=== PATIENT | male | born 1995 | race Caucasian/White ===

== ENCOUNTER 2019-02-07 12:33 | Inpatient (IN) | payer OTHER, SELFPAY ==
[2019-02-07] VITALS (8 sets, daily range): BP systolic 122–139; BP diastolic 75–90; PULSE 81–98; RESP 14–18; TEMP 36.3–36.9; O2SAT 99; BMI 24.8; BMI 24.9; BMI 25.0
--- NOTE | 2019-02-07 12:46 | EKG12_ITS ---
Test Reason : Blood Pressure : / mmHG Vent. Rate : 081 BPM Atrial Rate : 081 BPM P-R Int : 142 ms QRS Dur : 098 ms QT Int : 426 ms P-R-T Axes : 053 081 078 degrees QTc Int : 494 ms Normal sinus rhythm Prolonged QT Abnormal ECG No previous ECGs available Confirmed by ANAY ALEXANDER, JAYLAN ([id number]), web editor MARTA APODACA ([id number] on 02/12/2019 12:53:07 PM Referred By: Rocky Tavera Confirmed By:NETTA CUEVA MD
--- NOTE | 2019-02-07 12:47 | ED.VIS.CHEST ---
History of Present Illness Chief Complaint: Chest Pain Informant: Patient Onset: Days - 2 Timing: Intermittent - poor details available; see below; complaining of mild left chest discomfort w/o radiation right now Quality: Pain Location: Left Chest Current Severity: Mild Maximum Severity: Mild Worsened By: Nothing Relieved By: Nothing Associated Symptoms: - - anxiety. Negative for: Nausea, Vomiting, Diaphoresis, Dyspnea, Cough, Fever, Lightheadedness, Acid Reflux, Palpitations Narrative: Patient lives in [place], [place]. He uses heroin regularly, and accidentally overdosed on what was probably fentanyl a couple nights ago and was seen in the hospital and had a abnormal troponin that was around 2. He was transferred/flown to [facility] in [place], where he injected opiates while in the hospital and then left AGAINST MEDICAL ADVICE. His family convinced him to seek further medical care, so he is here today. He is anxious about what is going on and wants to stop using drugs. He states he thinks it is the anxiety, but he is developing some chest discomfort right now but has had none otherwise today or yesterday. He had an echocardiogram at [facility], the results at this time are unknown, he was supposed to have another one today but did not since he left. - Past Medical History (1) Opiate abuse, episodic Status: Chronic Past Medical History - Allergies and Home Meds Allergies/Adverse Reactions: Allergies No Known Allergies Allergy (Verified 02/07/19 12:38) Primary Care Physician: Roberto Alamo MD [Primary Care Provider] - Lives: Spouse/ Significant Other Smoking Status: Current every day smoker Drugs: Heroin Review of Systems General: Denies: Chills, Fever, Sweats Eyes: Denies: Visual changes - bilaterally, Diplopia ENT: Denies: Rhinorrhea, Sore throat Cardiovascular: Reports: Chest pain. Denies: Palpitations Respiratory: Denies: Dyspnea, Cough, Dyspnea on exertion Gastrointestinal: Denies: Abdominal pain, Nausea, Vomiting, Diarrhea, Melena, Hematochezia Genitourinary: Denies: Dysuria, Hematuria, Frequency Musculoskeletal: Denies: Back pain, Extremity Pain Skin: Denies: Rash, Wounds Neurological: Denies: Headache, Weakness, Numbness Psych: Reports: Anxiety Physical Exam Vital Signs/Narrative: Vital Signs Temp Pulse Resp BP Pulse Ox 02/07/19 12:34 98.5 F 88 14 139/90 H 99 Inital Vital Signs reviewed: Yes General: Well nourished, Well developed, No Acute Distress Head: Normocephalic, Atraumatic Eyes: Perrl, EOMI ENT: Moist mucous membranes, No rhinorrhea Neck: Supple, Nontender, No JVD Cardiovascular: Regular rate, Regular rhythm, No murmurs, Normal S1, Normal S2. Negative for: Tachycardia Respiratory: No distress, CTA bilaterally, Chest nontender Abdomen: Soft, Nontender, Nondistended, Normal bowel sounds Back: Nontender, Normal Inspection Extremities: Nontender, No edema. Negative for: Calf Tenderness Skin: Normal color, No rash, No Trauma Neurological: Alert, Oriented x3, Cranial nerves II-XII grossly intact, Normal Strength, Normal Sensation Psychological: Normal Mood, - - anxious Diagnostic/Tx/Re-eval Impressions Chest X-Ray 02/07/19 12:48 IMPRESSION: Normal x-ray examination of the chest. Electronically Signed: Harsha Dane, at 13:11 EST , Service support , 02/07/19 12:48 Chest 1 View (Portable) [RAD] Stat Laboratory Results 02/07/19 02/07/19 13:03 13:03 WBC 7.0 RBC 4.49 L Hgb 12.5 L Hct 39.8 L MCV 88.6 MCH 27.8 MCHC 31.4 L RDW Std Deviation 41.7 RDW Coeff of Sherrill 12.9 Plt Count 200 MPV 9.2 Immature Gran % (Auto) 0.300 Neut % (Auto) 45.7 L Lymph % (Auto) 38.1 [place] % (Auto) 11.6 H Eos % (Auto) 3.9 Baso % (Auto) 0.4 Absolute Neuts (auto) 3.2 Absolute Lymphs (auto) 2.67 Nucleated RBC % 0 Sodium 140 Potassium 3.9 Chloride 104 Carbon Dioxide 31.0 Anion Gap 5 BUN 17 Creatinine 0.88 Estim Creat Clear Calc 137.86 Est GFR (MDRD) Af Amer 136 Est GFR (MDRD) Non-Af 113 BUN/Creatinine Ratio 19.3 Glucose 82 Calcium 8.3 L Troponin I 0.274 H - Rhythm Strip Rhythm Strip: Sinus Rhythm Rate: 90 Ectopy: None - EKG Initial EKG Interpretation: Sinus Rhythm, No Acute Injury Pattern, S-T Elevation - J-pt elevation V2-3, more of an early repol appearance Prior: No Prior Treatment: Aspirin, - - clopidogrel - Medical Decision Making Patient is chest pain-free on reevaluation. His troponin is elevated at 0.27, we are still awaiting records from [facility]. I discussed with Dr. Sykes with cardiology, he recommends admitting the patient, loading him with Plavix 300 mg, giving him aspirin, in preparation for a heart cath tomorrow as well as an echocardiogram. I discussed with the patient and family at length, he is amenable to being admitted. As I discussed with him, if he does go into withdrawal we have addiction medicine that could be consulted for him, and he will need to be referred to rehab as an outpatient to help him get off of heroin, which he is reluctantly agreeing to at this time. ED Disposition - Plan for ED Patient: Disposition: Acute Care Hospital [facility] Diagnosis: Elevated troponin, Opiate abuse, episodic, Chest pain Referrals: Roberto Alamo MD [Primary Care Provider] -
--- NOTE | 2019-02-07 12:48 | RAD_ITS ---
STUDY: X-RAY CHEST REASON FOR EXAM: Male, 23 years old. Chest pain. TECHNIQUE: Single AP portable view of the chest. COMPARISON: None. FINDINGS: The lungs are clear and expanded. There is no demonstrated pleural abnormality. Normal size heart. Normal mediastinum and jason. Normal visualized pulmonary arteries. Normal visualized aortic arch and descending thoracic aorta. Normal visualized thoracic spine. Normal visualized ribs, clavicles, and shoulders. There is no demonstrated abnormality of the visualized soft tissue structures of the upper abdomen. RAD/Chest 1 View (Portable) IMPRESSION: Normal x-ray examination of the chest. Electronically Signed: Harsha Vela, at 13:11 EST , Service support ,
[2019-02-07 13:25] LABS: Absolute Lymphocyte Count 2.67 X10^3/uL (0.83-4.51); Absolute Neutrophil Count 3.2 X10^3/uL (2.0-7.7); Basophil# 0.03 X10^3/uL; Basophil% 0.4 % (0-1); Eosinophil# 0.27 X10^3/uL; Eosinophils% 3.9 % (0-5); Hematocrit 39.8 % (40-54); Hemoglobin 12.5 g/dL (13.0-16.5); Lymphocyte # 2.67 X10^3/ul (4.0); Lymphocyte % 38.1 % (19-41); Mean Corp Hgb Conc 31.4 g/dL (32-36); Mean Corpuscular Hgb 27.8 pg (27.0-32.0); Mean Corpuscular Volume 88.6 fL (80-94); Mean Platelet Vol. 9.2 fl (6.2-12.0); Monocyte# 0.81 X10^3/uL; Monocyte% 11.6 % (0-10); NRBC Flagged by Analyzer 0 % (0-5); Neutrophil # 3.21 X10^3/uL (2.7-7.7); Neutrophil % 45.7 % (47-70); Platelet Count 200 K/mm3 (150-450); RBC Distribution Width CV 12.9 % (11.6-14.6); RBC Distribution Width SD 41.7 fl (35.1-43.9); Red Blood Count 4.49 M/mm3 (4.6-6.2)
[2019-02-07 13:29] LABS: Anion Gap 5 (5-15); BUN 17 mg/dL (7-18); BUN/Creat Ratio 19.3 RATIO (10-20); Calcium,Total 8.3 mg/dL (8.5-10.1); Chloride 104 mmol/L (98-107); Creatinine, Serum 0.88 mg/dL (0.70-1.30); EST Glomerular Filtration Rate 113 mL/min (>60); Est Glom Filt Rate - Afr Amer 136 mL/min (>60); Estimated Creatinine Clearance 137.86 ml/min; Glucose 82 mg/dL (74-106); Potassium 3.9 mmol/L (3.5-5.1); Sodium Level 140 mmol/L (136-145)
[2019-02-07] MEDS: Aspirin 81 MG TAB.CHEW 324 MG PO (15:26)
[2019-02-07] MEDS: Clopidogrel Bisulfate 300 MG Tablet PO (15:26)
--- NOTE | 2019-02-07 15:48 | CON.PCM_ITS ---
Problem List (1) Opiate abuse, episodic Status: Chronic (2) Elevated troponin Status: Acute (3) Chest pain Status: Acute Reason for Consult Date of Consultation: 02/07/19 Reason for Consultation: Chest pain, abnormal troponin, tobacco abuse History of Present Illness: The patient is a 23 year old M with no previous cardiac history, nondiabetic, current smoker of 1/2 to 1 pack of cigarettes per day for the past several years, occasional alcohol use, with almost daily use of IV fentanyl, methamphetamines, and heroin IV. Patient had overdose about 2 nights ago, and sought medical attention in an outside facility in [place], and apparently signed out AGAINST MEDICAL ADVICE. At that time a troponin was obtained and was found to be 2.0. Apparently was flown by helicopter to [facility] in [place] and subsequently admitted to the hospital. Apparently while in the hospital the patient used illicit drugs, and then eventually signed out AMA. The patient returned to his hometown area with his family and was then brought to the emergency room for further evaluation and for admission for detoxification drug use. In addition the patient complained of chest pain and palpitations as well as a fast heart rate while he was using methamphetamines. He has never had an echocardiogram, catheterization, or stress test. He is currently chest pain- free. His troponin in our hospital was 0.27. EKG today demonstrates normal sinus rhythm with no acute changes. He was given baby aspirin and Plavix with echocardiogram pending. [] Past Medical History Allergies/Adverse Reactions: Allergies No Known Allergies Allergy (Verified 02/07/19 12:38) Home Medications: Ambulatory Orders Medication Instructions Recorded NK 02/07/19 Past Medical History (Chronic Problems): Chronic Problems Opiate abuse, episodic (Chronic) Lives: Spouse/ Significant Other Smoking Status: Current every day smoker Tobacco Use: Cigarettes Drugs: Heroin Review of Systems - Review of Systems General: Denies: Fever, Night Sweats, Fatigue Cardiovascular: Reports: Chest Discomfort, Chest Discomfort at Rest, Palpitations. Denies: Shortness of Breath, Orthopnea, PND, Peripheral Edema, Lightheadedness, Dizziness, Near Syncope, Syncope Respiratory: Denies: Cough, Sputum Production, Hemoptysis Gastrointestinal: Denies: Hematemesis, Hematochezia, Melena Genitourinary: Denies: Dysuria, Hematuria Skin: Denies: Rash Subjectve: Patient laying in bed, no acute distress. Objective: Vital Signs Temp Pulse Resp BP Pulse Ox 98.5 F 89 17 127/81 H 99 02/07/19 12:34 02/07/19 14:34 02/07/19 14:34 02/07/19 14:34 02/07/19 14:34 Oxygen Delivery Method Room Air Weight: 178 lb 5.663 oz Body Mass Index (BMI) 24.8 General: Awake, Alert, Oriented x 3 HEENT: PERRL, EOMI, Sclera Non Icteric Neck: Supple, Good ROM, No Lymph Node Enlargement Lungs: Clear to auscultation Cardiovascular: Regular Rhythm, Normal S1, Normal S2, No Murmurs, No Rubs, No Gallops Vascular: No Carotid Bruits, Normal Femoral Pulses, Normal Radial Pulses, Normal Dorsalis Pedal Pulse, Normal Posterior Tibial Pulses Abdomen: Bowel Sounds Present, Soft, Non Tender, No HSM, No Organomegaly Extremities: No Cyanosis, No Clubbing, No edema Neurological: No Focal Motor or Sensory Deficit 02/07/19 13:03: WBC 7.0, RBC 4.49 L, Hgb 12.5 L, Hct 39.8 L, MCV 88.6, MCH 27.8, MCHC 31.4 L, Plt Count 200, MPV 9.2, Immature Gran % (Auto) 0.300, Neut % (Auto) 45.7 L, Lymph % (Auto) 38.1, Kay % (Auto) 11.6 H, Eos % (Auto) 3.9, Baso % (Auto) 0.4, Absolute Neuts (auto) 3.2, Nucleated RBC % 0 02/07/19 13:03: Sodium 140, Potassium 3.9, Chloride 104, Carbon Dioxide 31.0, Anion Gap 5, BUN 17, Creatinine 0.88, Est GFR (MDRD) Af Amer 136, Est GFR (MDRD) Non-Af 113, BUN/Creatinine Ratio 19.3, Glucose 82, Calcium 8.3 L, Troponin I 0.274 H Rhythm: EKG: ECHO: Pending Stress Test: Cardiac Cath: Pending PCI: CT Surgery: Holter monitor: EPS: PPM: CXR: Negative. Chest CT Scan: Assessment/Plan 1. Abnormal troponin: The patient has an abnormal troponin at outside facility of 2.0, which is decreased to 0.27. I recommended the patient be given baby aspirin x4, followed by 3 mg of p.o. Plavix in case he may have acute coronary syndrome which is resolving. The patient did have chest pain although it was with the use of methamphetamines, heroin, and fentanyl. I recommended the patient undergo a 2D echo with Doppler to document his LV function, pulmonary pressures and valvular status. In addition given his chest pain and abnormal troponins, I recommended that we proceed with a left heart catheterization to ensure he does not have any significant coronary occlusive disease that may explain his symptoms and abnormal troponin. The risk/benefits of the procedure were thoroughly explained to the patient, his brother, and his father, including specific attention to lack of onsite surgical backup. Patient is agreed to proceed. 2. Hypertension: I recommend starting the patient on metoprolol 25 mg p.o. twice daily in an attempt to control his blood pressure and his heart rate to avoid further troponin release until his catheterization has been completed. 3. Recommend obtaining a vascular profile. 4. Drug abuse: Patient's main issues are multiple drug use, including methamphetamine, fentanyl IV, and heroin. I believe the patient should be admitted for inpatient detoxification and drug rehab. Patient may require sedative medications during withdrawal symptoms. I would not recommend discharging home at this time. 5. Tobacco abuse: I had a long and thorough discussion with the patient regarding tobacco use as well as other drug use, and strongly encouraged him to discontinue all tobacco products. 6. Thank you very much for the opportunity to participate in the cardiac care of your patient. Rotation time took place between 330 and 4 PM. Code Visit Inpatient E&M: 35540 Init Hosp L2
--- NOTE | 2019-02-07 15:58 | ECHOD_ITS ---
Reason For Study: CAD, elevated troponin Procedure This was a 2D Doppler, Color Flow transthoracic echocardiogram. Exam performed portable in patient room. Left Ventricle Normal size and thickness. Apical false tendon noted. The estimated ejection fraction is 55 %. Normal diastology for age. No regional wall motion abnormalities noted. There is borderline global hypokinesis of the left ventricle. Right Ventricle Normal size and thickness. Normal systolic function. Atria Normal left atrium. Normal right atrium. Normal atrial septum. Mitral Valve The mitral valve is structurally normal. No prolapse or stenosis seen. Trivial posteriorly directed mitral valve insufficiency. Tricuspid Valve Normal tricuspid valve. Mild (1+) tricuspid valve insufficiency. Right ventricular systolic pressure estimated to be 37 mmHg. Mild pulmonary hypertension. Aortic Valve Trisinus/trileaflet aortic valve. Normal aortic valve. Pulmonic Valve Normal pulmonic valve. Trivial pulmonic valve insufficiency. Great Vessels Normal aortic root. Normal arch. The inferior vena cava is dilated. No collapse of the inferior vena cava. Pericardium/Pleural No pericardial effusion. MMode/2D Measurements & Calculations LVIDd: 4.7 cm IVSd: 1.4 cm Ao root diam: 2.9 cm LVIDs: 3.0 cm LVPWd: 1.3 cm RVDd: 3.5 cm FS: 35.9 % LAV(MOD-bp): 22.7 ml LA A4 area: 13.0 cm2 LA dimension(2D): 2.2 cm LAV(MOD-bp) Indexed: 11.3 ml/m2 LAV(MOD-sp2): 18.8 ml LAV(MOD-sp4): 26.8 ml RA A4 area: 12.5 cm2 Doppler Measurements & Calculations MV E max andrea: 64.8 cm/sec Lat Peak E' Andrea: 13.6 cm/sec Med Peak E' Andrea: 9.4 cm/sec MV A max andrea: 30.2 cm/sec E/E' lat: 4.8 E/E' med: 6.9 MV E/A: 2.1 Ao V2 max: 84.0 cm/sec LV V1 max: 78.9 cm/sec PA V2 max: 54.9 cm/sec Ao max P.8 mmHg LV V1 max P.5 mmHg TR max andrea: 282.7 cm/sec TR max P.3 mmHg Interpretation Summary The estimated ejection fraction is 55 %. Normal diastology for age. There is borderline global hypokinesis of the left ventricle. Trivial posteriorly directed mitral valve insufficiency. Mild (1+) tricuspid valve insufficiency. Right ventricular systolic pressure estimated to be 37 mmHg. Mild pulmonary hypertension. There is no comparison study available. Ordering Physician: Zuhair Sykes Referring Physician: Rocky Tavera Performed By: Janny, Raine, RDCS
--- NOTE | 2019-02-07 16:33 | HP.PCM_ITS ---
Problem List (1) Polysubstance (including opioids) dependence, daily use Status: Chronic (2) Nicotine dependence Status: Chronic (3) Chest pain Status: Acute (4) Elevated troponin Status: Acute (5) Opiate abuse, episodic Status: Chronic History of Present Illness Date of Admission: 02/07/19 Chief Complaint: Polysubstance use and chest pain The patient is a 23 year old M with history of polysubstance use including opioids fentanyl and heroin IV came to ER with chest pain as per the request of family. Prior to that, patient went to [place] ER for IV heroin and fentanyl use and where he was found to have troponin although he denies chest pain yesterday. From there he was transferred to [facility] for positive troponin. There he was found unconscious in the bathroom after using IV fentanyl and was reversed by Narcan. As per the patient he was down for few minutes. Later on patient signed AMA from there. He came to ER with chest pain today, midsternal localized about 2-3 times each lasting few seconds to a few minutes. There is no associated shortness of breath, palpitation, diaphoresis or near syncope. Patient is also a smoker, smokes cigarette since early 13 a pack per day. Patient was also using crack cocaine few years ago currently IV heroin and fentanyl and methamphetamine for 2 to 3 years. In ED, EKG was found normal sinus rhythm at 90 bpm with J-point elevation in V2 and V3. Chest x-ray reported normal. Troponin 0 0.274. Recreational Resort Manager was consulted and patient seen by Dr. Sykes in ER. Past Medical History Past Medical History (Chronic Problems): Chronic Problems Opiate abuse, episodic (Chronic) Polysubstance (including opioids) dependence, daily use (Chronic) Nicotine dependence (Chronic) Allergies No Known Allergies Allergy (Verified 02/07/19 12:38) Home Medications: Ambulatory Orders Medication Instructions Recorded NK 02/07/19 Lives: Spouse/ Significant Other Smoking Status: Current every day smoker Tobacco Use: Cigarettes Drugs: Heroin - *Family History Paternal History Items: No pertinent history - No heart disease in first-degree family relative Review of Systems Constitutional: Denies: Chills, Fever, Weight Change HEENT: Denies: Head Aches, Sinus Congestion, Sinus Drainage Cardiovascular: Reports: Chest Pain. Denies: Palpitations Respiratory: Denies: Cough, Shortness of breath at rest, Sputum production Gastrointestinal: Denies: Abdominal Pain, Nausea, Vomiting Genitourinary: Denies: Dysuria Musculoskeletal: Denies: Joint Pain, Joint Tenderness Skin: Denies: Rash, Wounds Neurological: Denies: Numbness, Tingling, Focal weakness Psychiatric: Reports: Anxiety. Denies: Depression, Homicidal Ideations, Suicidal Ideations Hematologic/ Lymphatic: Denies: Easy Bruising, Easy Bleeding VTE Information - Inpt Only VTE Present on Admission: No VTE Mechan Device Prophylaxis: None VTE Pharm Prophylaxis ordered?: Yes Patient Problems: Active and Suspected Problems Elevated troponin (Acute) Chest pain (Acute) - Physical Exam Vitals/I&O's: Vital Signs Temp Pulse Resp BP Pulse Ox 98.3 F 81 16 127/81 H 99 02/07/19 16:20 02/07/19 16:28 02/07/19 16:20 02/07/19 16:20 02/07/19 16:20 Oxygen Delivery Method Room Air Weight: 174 lb 9.698 oz Body Mass Index (BMI) 25.0 General: Alert, Oriented x3, Cooperative HEENT: Atraumatic, PERRLA, EOMI, Normocephalic Oral: Dry Mucosa Neck: Supple, No JVD, Negative Carotid Bruits Lungs: Clear to auscultation, Normal air movement, No rhonchi, No wheeze, No rales Cardiovascular: Regular rate, Regular Rhythm, Normal S1, Normal S2, No murmurs Abdomen: Bowel Sounds Present, Soft, Non Tender, Non-Distended Extremities: No edema, Capillary Refill Less than 3 Seconds Skin: No rashes, No breakdown, - - Needle bolivar over bilateral antecubital fossa. Musculoskeletal: No Tenderness to Palpation of Joints or Extremities Neurological: Cranial nerves II-XII grossly intact Psych/Mental Status: Normal Affect, Appropriate Laboratory Results 02/07/19 13:03: WBC 7.0, RBC 4.49 L, Hgb 12.5 L, Hct 39.8 L, MCV 88.6, MCH 27.8, MCHC 31.4 L, RDW Std Deviation 41.7, RDW Coeff of Sherrill 12.9, Plt Count 200, MPV 9.2, Immature Gran % (Auto) 0.300, Neut % (Auto) 45.7 L, Lymph % (Auto) 38.1, [place] % (Auto) 11.6 H, Eos % (Auto) 3.9, Baso % (Auto) 0.4, Absolute Neuts (auto) 3.2, Absolute Lymphs (auto) 2.67, Nucleated RBC % 0 02/07/19 13:03: Sodium 140, Potassium 3.9, Chloride 104, Carbon Dioxide 31.0, Anion Gap 5, BUN 17, Creatinine 0.88, Estim Creat Clear Calc 137.86, Est GFR (MDRD) Af Amer 136, Est GFR (MDRD) Non-Af 113, BUN/Creatinine Ratio 19.3, Glucose 82, Calcium 8.3 L, Troponin I 0.274 H 02/07/19 13:03: Triglycerides Pending, Cholesterol Pending, LDL Cholesterol Pending, VLDL Cholesterol Pending, HDL Cholesterol Pending Current Medications Diphenhydramine HCl (Benadryl) 50 mg PO X1 ONE Stop: 02/08/19 07:01 Sodium Chloride () 1,000 mls @ 15 mls/hr IV .Q48H ALBERTO Metoprolol Tartrate (Lopressor (Beta Jay)) 25 mg PO BID ALBERTO Sodium Chloride () 10 - 40 ml IV UD PRN PRN Reason: SALINE FLUSH Assessment/Plan All Active Problems Elevated troponin (Acute) Chest pain (Acute) The patient is a 23 year old M with history of polysubstance use including opioids fentanyl and heroin IV came to ER with chest pain as per the request of family. He came to ER with chest pain today, midsternal localized about 2-3 times each lasting few seconds to a few minutes. There is no associated shortness of breath, palpitation, diaphoresis or near syncope. Patient is also a smoker, smokes cigarette since early 13 a pack per day. Patient was also using crack cocaine few years ago currently IV heroin and fentanyl and methamphetamine for 2 to 3 years. In ED, EKG was found normal sinus rhythm at 90 bpm with J-point elevation in V2 and V3. Chest x-ray reported normal. Troponin 0 0.274. Recreational Resort Manager was consulted and patient seen by Dr. Sykes in ER. 1. Atypical chest pain from sympathomimetics, methamphetamine with possibility of acute coronary syndrome/NSTEMI/Prinzmetal angina: Patient is being admitted in PCU. Serial troponin ordered. Possible cardiac catheter tomorrow a.m. 2. Polysubstance use including IV heroin, fentanyl and methamphetamine: Patient was counseled to stop that. Patient started on medical stabilization order set for opioids. 3. Chronic smoking cigarettes, nicotine dependence: On nicotine patch. DVT prophylaxis: Low risk. Early ambulation encouraged. Clinical Impression(s) from Imaging Studies Chest X-Ray 02/07/19 12:48 IMPRESSION: Normal x-ray examination of the chest. Electronically Signed: Harsha Vela, at 13:11 EST , Service support , Code Visit Inpatient E&M: 44402 Init Hosp L3
--- NOTE | 2019-02-07 17:10 | EKG12_ITS ---
Test Reason : ABN LABS Blood Pressure : / mmHG Vent. Rate : 090 BPM Atrial Rate : 090 BPM P-R Int : 140 ms QRS Dur : 100 ms QT Int : 380 ms P-R-T Axes : 054 082 078 degrees QTc Int : 464 ms Normal sinus rhythm Normal ECG Confirmed by ANAY ALEXANDER, JAYLAN ([id number]), newspaper photo editor DIANA SULTANA ([id number]) on 02/12/2019 11:44:23 AM Referred By: Rocky Tavera Confirmed By:NETTA CUEVA MD
[2019-02-07 17:37] LABS: International Normalized Ratio 1.1; Prothrombin Time (Protime)PT. 14.2 SECONDS (11.7-14.9)
[2019-02-07 18:15] LABS: Lipase 97 U/L (73-393)
[2019-02-07] MEDS: 0.9% Normal Saline 1,000 ML 100 ML IV (18:20)
[2019-02-07] MEDS: chlordiazePOXIDE 25 MG Capsule PO ×2 (18:30→21:43)
[2019-02-07] MEDS: Buprenorphine HCl 2 MG TAB.SUBL SL (18:30)
[2019-02-07 18:43] LABS: Bacteria 0 SEEN /hpf (None Seen); Mucous, Urine 0 SEEN /hpf (<or=2+); Red Blood Cells-Urine 0 SEEN /hpf (0-5); Squamous Epithelial Cells - UA 0 SEEN /hpf (0-5); White Blood Cells 0 SEEN /hpf (0-5)
[2019-02-07 18:52] LABS: Color, Urine Yellow (Yellow); Glucose, Dipstick Normal (Normal); Ketone-Dipstick Negative (Negative); Leukocyte Esterase-Dipstick Negative /ul (Negative); Nitrite-Dipstick Negative (Negative); Occult Blood-Urine Negative /ul (Negative); Protein-Dipstick Negative (Negative); Urine Bilirubin Dipstick Negative (Negative); Urine Clarity Sl. Cloudy (Clear); Urine Urobilinogen Normal (Normal)
[2019-02-07 19:06] LABS: Cholesterol 65 mg/dL (200); High Density Lipoprotein 35 mg/dL; Triglycerides 81 mg/dL; Very Low Density Lipoprotein 16 mg/dL (5-40)
[2019-02-07 19:20] LABS: Amphetamine Urine VISTA POSITIVE (<1000 ng/mL); Barbiturate Urine VISTA NEGATIVE (< 200 ng/mL); Benzodiazepine Urine VISTA POSITIVE (< 200 ng/mL); Cocaine Urine VISTA NEGATIVE (< 300 ng/mL); Ecstacy Urine VISTA NEGATIVE (< 500 ng/mL); Methadone Urine VISTA NEGATIVE (< 300 ng/mL); PCP Urine VISTA NEGATIVE (< 25 ng/mL); THC Urine VISTA NEGATIVE (< 50 ng/mL); Vista UDS pH Range 6
[2019-02-07] MEDS: Atorvastatin Calcium 40 MG Tablet PO (21:42)
[2019-02-07] MEDS: traZODone 50 MG Tablet PO (21:43)
[2019-02-07] MEDS: Metoprolol Tartrate 25 MG Tablet PO (21:43)
[2019-02-07] MEDS: Ondansetron 4 MG/2 ML Vial IV (23:34)
[2019-02-08] VITALS (21 sets, daily range): BP systolic 86–112; BP diastolic 56–67; PULSE 70–87; RESP 16–18; TEMP 36.3–36.8; O2SAT 92–98
[2019-02-08] MEDS: chlordiazePOXIDE 25 MG Capsule PO ×4 (03:16→14:06)
[2019-02-08] MEDS: Buprenorphine HCl 2 MG TAB.SUBL SL ×3 (03:19→17:41)
[2019-02-08] MEDS: 0.9% Normal Saline 1,000 ML 100 ML IV ×2 (03:20→14:13)
[2019-02-08] MEDS: Clopidogrel Bisulfate 75 MG Tablet PO (05:25)
[2019-02-08] MEDS: Aspirin E.C. 81 MG Tablet PO (05:25)
[2019-02-08] MEDS: Metoprolol Tartrate 25 MG Tablet PO (05:26)
--- NOTE | 2019-02-08 05:55 | EKG12_ITS ---
Test Reason : AM EKG Blood Pressure : / mmHG Vent. Rate : 074 BPM Atrial Rate : 074 BPM P-R Int : 156 ms QRS Dur : 096 ms QT Int : 418 ms P-R-T Axes : 052 088 072 degrees QTc Int : 463 ms Normal sinus rhythm Normal ECG When compared with ECG of 07-FEB-2019 12:48, MANUAL COMPARISON REQUIRED, DATA IS UNCONFIRMED Confirmed by ANAY ALEXANDER, JAYLAN ([id number]), food expeditor MARTA APODACA ([id number]) on 02/12/2019 12:50:44 PM Referred By: Rocky Tavera Confirmed By:NETTA CUEVA MD
[2019-02-08 06:05] LABS: Absolute Lymphocyte Count 2.58 X10^3/uL (0.83-4.51); Absolute Neutrophil Count 2.2 X10^3/uL (2.0-7.7); Basophil# 0.02 X10^3/uL; Basophil% 0.3 % (0-1); Eosinophil# 0.32 X10^3/uL; Eosinophils% 5.5 % (0-5); Hematocrit 38.4 % (40-54); Hemoglobin 11.9 g/dL (13.0-16.5); Lymphocyte # 2.58 X10^3/ul (4.0); Lymphocyte % 44.7 % (19-41); Mean Corpuscular Hgb 27.4 pg (27.0-32.0); Mean Corpuscular Volume 88.5 fL (80-94); Mean Platelet Vol. 9.6 fl (6.2-12.0); Monocyte# 0.61 X10^3/uL; Monocyte% 10.6 % (0-10); NRBC Flagged by Analyzer 0 % (0-5); Neutrophil # 2.23 X10^3/uL (2.7-7.7); Neutrophil % 38.7 % (47-70); Platelet Count 180 K/mm3 (150-450); RBC Distribution Width CV 12.8 % (11.6-14.6); RBC Distribution Width SD 41.8 fl (35.1-43.9); Red Blood Count 4.34 M/mm3 (4.6-6.2); White Blood Count 5.8 K/mm3 (4.4-11.0)
[2019-02-08] MEDS: DiphenhydrAMINE 25 MG Capsule 50 MG PO (06:26)
[2019-02-08 06:44] LABS: ALB/GLOB Ratio 0.9 RATIO (0.9-2.4); AST(SGOT) 270 U/L (15-37); Alanine Aminotransfer ALT/SGPT 363 U/L (16-61); Albumin, Serum 2.8 g/dL (3.2-5.0); Alkaline Phosphatase 110 U/L (45-117); Anion Gap 4 (5-15); BUN 14 mg/dL (7-18); BUN/Creat Ratio 17.9 RATIO (10-20); Bilirubin, Direct 0.34 mg/dL (0.00-0.30); Chloride 108 mmol/L (98-107); Creatinine, Serum 0.78 mg/dL (0.70-1.30); EST Glomerular Filtration Rate 129 mL/min (>60); Est Glom Filt Rate - Afr Amer 156 mL/min (>60); Estimated Creatinine Clearance 150.78 ml/min; Globulin 3.2 g/dL (2.2-4.2); Glucose 97 mg/dL (74-106); Magnesium 1.9 mg/dL (1.6-2.6); Potassium 4.1 mmol/L (3.5-5.1); Sodium Level 140 mmol/L (136-145); Thyroid Stim Hormone (TSH) 2.17 uIU/mL (0.358-3.74)
--- NOTE | 2019-02-08 06:59 | NURSING ---
Report called to ruiz Spencer.
--- NOTE | 2019-02-08 08:05 | CL.D_ITS ---
Patient Name: MAGALY COLLIER Study Date: 02/08/2019 Performing: Zuhair Sykes MD Ht: 70.07 inches 178 cm : 1995 Wt: 174.17 lbs 79 kg Age: 23 Gender: male BSA: 1.97 PROCEDURE(S) PERFORMED [id number]/LV CLINICAL PROFILE AND INDICATIONS Patient presents with NSTEMI for urgent cardiac cath Indications: ACS > 24 hrs, New Onset Angina <= 2 months, Suspected CAD Heart Failure: None Stress/Imaging Stress/Image Study Performed: No Angina Classification Anginal Classification w/in 2 Weeks: CCS IV CAD Presentations: Unstable angina. Non-STEMI. Symptom onset Date/Time: 02/06/2019 Time Not Avail able Comorbidities/Risk Factors: Current/Recent Smoker (< 1year) CONCLUSIONS Normal LV size, wall motion,and systolic function Normal coronary arteries RECOMMENDATIONS Management as per referring Honey Extractor d/c plavix, start lopressor 12.5 mg po bid. Manual sheath removal. DESCRIPTION OF PROCEDURE The patient arrived to the procedure lab. The risks and benefits of the procedure as well as a full d escription of our services here and current unavailability of surgical backup were fully explained to the patient and/or their significant other prior to the catheterization. The Timeout was completed, verifying the correct patient and procedure. The patient's procedural site was prepped and draped in the usual fashion. Local anesthetic was given subcutaneously to right groin region with Lidocaine 2%. Using a modified Seldinger technique, arterial access was obtained via the right femoral artery, a 4 Fr sheath was inserted Left Coronary Artery selective angiography was performed in multiple views us ing a 4 Fr. JL5 catheter. Right Coronary Artery selective angiography was then performed in multiple views using a 4 Fr. 3DRC catheter. Left Ventriculography was performed in [place] projection using a 4 Fr . Pigtail catheter. LV to AO pullback pressures were then recorded.The arterial sheath was pulled and manual compression applied until hemostasis is achieved. CORONARY ANGIOGRAPHY DOMINANCE: Right Dominant LEFT HEART ASSESSMENT Left Ventricular Ejection Fraction: by LV Gram 55 % Normal LV wall motion Normal Left Ventricular systolic function Normal Left Ventricular systolic function LVEDP: 11 mmHg Normal Left Ventricular End Diastolic Pressure LEFT MAIN: Angiographically normal LEFT ANTERIOR DESCENDING ARTERY: Angiographically normal CIRCUMFLEX ARTERY: Angiographically normal RIGHT CORONARY ARTERY: Angiographically normal COMPLICATIONS No Complications PROCEDURE MEDICATIONS Oxygen: 2 L/min via nasal cannula SUMMARY OF HEMODYNAMIC DATA Time AIR REST ECG 07:31:33 AO 82/60 (70) SA 07:47:04 LV 100/-10, 10 07:52:19 LV 105/-13, 11 07:52:25 LVp 103/-9, 12 07:52:29 AOp 92/60 (74) 07:52:34 Signed By Zuhair Sykes MD On 02/08/2019 8:04:56 AM Zuhair Sykes MD
[2019-02-08] MEDS: Metoprolol Tartrate 25 MG Tablet 12.5 MG PO ×2 (10:07→21:14)
--- NOTE | 2019-02-08 13:48 | PN_ITS ---
<Aide Wild - Last Filed: 02/08/19 14:00> Patient Problems: Active and Suspected Problems Elevated troponin (Acute) Chest pain (Acute) Subjective: Patient seen and examined. Underwent cardiac catheterization this morning which demonstrated normal coronary arteries. Patient lethargic during assessment. Family at bedside and is working with inpatient treatment facility with goals of discharge directly to inpatient treatment facility for polysubstance abuse. - Physical Exam Vitals/I&O's: Vital Signs Temp Pulse Resp BP Pulse Ox 98.0 F 73 18 96/61 94 02/08/19 11:00 02/08/19 12:00 02/08/19 12:00 02/08/19 12:00 02/08/19 12:00 Oxygen Delivery Method Room Air Weight: 174 lb 9.698 oz Body Mass Index (BMI) 25.0 Intake and Output for Last 24 Hours 02/06/19 02/07/19 02/08/19 23:59 23:59 23:59 Intake Total 1611.67 / 1611.67 Balance 1611.67 / 1611.67 General: - - Drowsy, no apparent distress HEENT: Atraumatic, PERRLA, EOMI, Normocephalic Neck: Supple, No JVD, Negative Carotid Bruits Lungs: Clear to auscultation, Normal air movement Cardiovascular: Regular rate, Regular Rhythm, Normal S1, Normal S2, No murmurs Abdomen: Bowel Sounds Present, Soft, Non Tender, Non-Distended Extremities: No clubbing, No cyanosis, No edema, Capillary Refill Less than 3 Seconds Skin: No rashes, No breakdown Musculoskeletal: No Tenderness to Palpation of Joints or Extremities Neurological: Cranial nerves II-XII grossly intact, Neuro grossly intact Psych/Mental Status: - - Unable to assess due to lethargy Laboratory Results 02/07/19 13:03: Triglycerides 81, Cholesterol 65, LDL Cholesterol 14, VLDL Cholesterol 16, HDL Cholesterol 35 L 02/07/19 13:03: PT 14.2, INR 1.1 02/07/19 13:03: Ethyl Alcohol 6.0 02/07/19 17:40: Troponin I 0.196 H, Lipase 97 02/07/19 18:30: Urine Opiates Screen NEGATIVE, Urine Methadone Screen NEGATIVE, Ur Barbiturates Screen NEGATIVE, Ur Phencyclidine Scrn NEGATIVE, Ur Amphetamines Screen POSITIVE H, U Methamphetamin-MDMA NEGATIVE, U Benzodiazepines Scrn POSITIVE H, Urine Cocaine Screen NEGATIVE, U Cannabinoids Screen NEGATIVE, Ur Drug Screen Comment 02/07/19 18:30: Urine Color Yellow, Urine Clarity Sl. Cloudy, Urine pH 6.0, Ur Specific Bertrand 1.020, Urine Protein Negative, Urine Glucose (UA) Normal, Urine Ketones Negative, Urine Occult Blood Negative, Urine Nitrite Negative, Urine Bilirubin Negative, Urine Urobilinogen Normal, Ur Leukocyte Esterase Negative, Urine RBC 0 SEEN, Urine WBC 0 SEEN, Ur Squamous Epith Cells 0 SEEN, Urine Bacteria 0 SEEN, Urine Mucus 0 SEEN 02/07/19 20:30: Troponin I 0.173 H 02/08/19 05:10: Sodium 140, Potassium 4.1, Chloride 108 H, Carbon Dioxide 28.0, Anion Gap 4 L, BUN 14, Creatinine 0.78, Estim Creat Clear Calc 150.78, Est GFR (MDRD) Af Amer 156, Est GFR (MDRD) Non-Af 129, BUN/Creatinine Ratio 17.9, Glucose 97, Calcium 8.0 L, Magnesium 1.9, Total Bilirubin 0.70, Direct Bilirubin 0.34 H, AST 270 H, ALT 363 H, Alkaline Phosphatase 110, Total Protein 6.0 L, Albumin 2.8 L, Globulin 3.2, Albumin/Globulin Ratio 0.9, TSH 2.17 02/08/19 05:10: WBC 5.8, RBC 4.34 L, Hgb 11.9 L, Hct 38.4 L, MCV 88.5, MCH 27.4, MCHC 31.0 L, RDW Std Deviation 41.8, RDW Coeff of Sherrill 12.8, Plt Count 180, MPV 9.6, Immature Gran % (Auto) 0.200, Neut % (Auto) 38.7 L, Lymph % (Auto) 44.7 H, Gratiot % (Auto) 10.6 H, Eos % (Auto) 5.5 H, Baso % (Auto) 0.3, Absolute Neuts (auto) 2.2, Absolute Lymphs (auto) 2.58, Nucleated RBC % 0 Current Medications Acetaminophen (Tylenol) 650 mg PO Q6H PRN PRN PRN Reason: Pain Score 1-3/Temp > 100.7 F Al Hydroxide/Mg Hydroxide (Mylanta Ii) 30 ml PO Q6H PRN PRN PRN Reason: dyspesia Albuterol Sulfate (Ventolin Aerosols) 2.5 mg INHALATION Q2H PRN PRN PRN Reason: SOB/Wheezing Aspirin (Ecotrin) 81 mg PO DAILY@0800 [facility] Last Admin: 02/08/19 05:25 Dose: 81 mg Documented by: Atorvastatin Calcium (Lipitor) 40 mg PO QHS [facility] Last Admin: 02/07/19 21:42 Dose: 40 mg Documented by: Bisacodyl (Dulcolax) 10 mg RECTAL DAILY PRN PRN Reason: Constipation Buprenorphine HCl (Buprenorphine Hcl) 4 mg SL Q8H [facility]; Taper Stop: 02/10/19 21:59 Last Admin: 02/08/19 10:06 Dose: 4 mg Documented by: Chlordiazepoxide (Librium) 25 mg PO Q6H PRN PRN PRN Reason: Moderate-Severe Anxiety Chlordiazepoxide (Librium) 25 mg PO Q4H [facility] Stop: 02/08/19 14:01 Last Admin: 02/08/19 10:07 Dose: 25 mg Documented by: Dicyclomine HCl (Bentyl) 20 mg PO Q6H PRN PRN PRN Reason: Abdomnial Discomfort Glucagon () 1 mg IM .X1 PRN PRN Reason: Hypoglycemia Heparin Sodium (Beef Lung) (Heparin 500 Unit/5 Ml (100/Ml)) 500 unit IV UD PRN PRN Reason: HEPARIN FLUSH Hydroxyzine HCl (Vistaril Vial) 50 mg IM Q6H PRN PRN PRN Reason: Breakthrough Anxiety Hydroxyzine Pamoate (Vistaril Pamoate Capsule) 50 mg PO Q6H PRN PRN PRN Reason: Mild Anxiety Sodium Chloride () 1,000 mls @ 15 mls/hr IV .Q48H [facility] Last Admin: 02/08/19 08:35 Dose: Not Given Documented by: Sodium Chloride () 1,000 mls @ 100 mls/hr IV .Q10H [facility] Last Infusion: 02/08/19 08:35 Dose: 100 mls/hr Documented by: Dextrose (Dextrose 10%-Water) 250 mls @ 999 mls/hr IV .Q16M PRN; Protocol PRN Reason: HYPOGLYCEMIA Ibuprofen (Motrin) 400 mg PO Q8H PRN PRN PRN Reason: Pain Score 1-5/10 Labetalol HCl (Trandate) 5 mg IV X1 PRN PRN Reason: SBP > 160 prior to sheath pull Loperamide HCl (Imodium) 2 - 4 mg PO UD PRN PRN Reason: LOOSE STOOLS Melatonin (Melatonin) 3 mg PO QHS PRN PRN PRN Reason: INSOMNIA Methocarbamol (Methocarbamol) 750 mg PO Q6H PRN PRN PRN Reason: Muscle Aches Metoprolol Tartrate (Lopressor (Beta Jay)) 12.5 mg PO BID [facility] Last Admin: 02/08/19 10:07 Dose: 12.5 mg Documented by: Nicotine (Nicoderm Cq (Pbkc)) 21 mg TRANSDERM. DAILY [facility] Last Admin: 02/08/19 10:07 Dose: 21 mg Documented by: Nitroglycerin (Nitrostat) 0.4 mg SUBLINGUAL Q5M PRN PRN Reason: CARDIAC/CHEST PAIN Ondansetron HCl (Zofran) 4 mg IV Q8H PRN PRN PRN Reason: NAUSEA/VOMITING Last Admin: 02/07/19 23:34 Dose: 4 mg Documented by: Ondansetron HCl (Zofran Odt) 4 mg PO Q6H PRN PRN PRN Reason: NAUSEA Pramipexole Dihydrochloride (Mirapex) 0.25 mg PO Q12H PRN PRN PRN Reason: Restless Legs Prochlorperazine Edisylate (Compazine Iv) 5 mg IV Q4H PRN PRN PRN Reason: Breakthrough Nausea/Vomiting Senna/Docusate Sodium (Senokot-S, Zeina-Colace) 2 tablet PO BID PRN PRN PRN Reason: Constipation Sodium Chloride () 10 - 40 ml IV UD PRN PRN Reason: SALINE FLUSH Trazodone HCl (Desyrel) 50 mg PO QHS [facility] Last Admin: 02/07/19 21:43 Dose: 50 mg Documented by: Medical Necessity - Tobacco Use Smoking Status: Current every day smoker Tobacco Use: Cigarettes Assessment/Plan All Active Problems Elevated troponin (Acute) Chest pain (Acute) 1. NSTEMI-cardiology consulted. Patient underwent cardiac catheterization which demonstrated normal coronary arteries. Plavix discontinued. Continue Lopressor 12.5 mg twice daily. Continue aspirin. 2. Polysubstance use-IV heroin, fentanyl and methamphetamine. Tox screen positive for amphetamines and benzodiazepines. Patient had recent Narcan administration x2 following overdose. Family seeking inpatient treatment. Social work following. Librium and buprenorphine taper ordered. PRN regimen for somatic complaints. 3. Transaminitis-unclear etiology, obtain hepatitis panel. Repeat liver profile in a.m. 4. Tobacco dependence-encouraged cessation. Nicotine replacement patch. DVT prophylaxis-low risk, early ambulation. Discharge planning: Pending evaluation for inpatient treatment facility. This patient was seen by ANGEL Barry under the supervision of Dr. Phillips. <Beti Phillips - Last Filed: 02/08/19 15:58> - Physical Exam Vitals/I&O's: Vital Signs Temp Pulse Resp BP Pulse Ox 98.0 F 76 18 96/61 94 02/08/19 11:00 02/08/19 15:00 02/08/19 12:00 02/08/19 12:00 02/08/19 12:00 Oxygen Delivery Method Room Air Weight: 174 lb 9.698 oz Body Mass Index (BMI) 25.0 Intake and Output for Last 24 Hours 02/06/19 02/07/19 02/08/19 23:59 23:59 23:59 Intake Total 2175.00 / 2175.00 Output Total 700 / 700 Balance 1475.00 / 1475.00 Laboratory Results 02/07/19 13:03: Triglycerides 81, Cholesterol 65, LDL Cholesterol 14, VLDL Cholesterol 16, HDL Cholesterol 35 L 02/07/19 13:03: PT 14.2, INR 1.1 02/07/19 13:03: Ethyl Alcohol 6.0 02/07/19 17:40: Troponin I 0.196 H, Lipase 97 02/07/19 18:30: Urine Opiates Screen NEGATIVE, Urine Methadone Screen NEGATIVE, Ur Barbiturates Screen NEGATIVE, Ur Phencyclidine Scrn NEGATIVE, Ur Amphetamines Screen POSITIVE H, U Methamphetamin-MDMA NEGATIVE, U Benzodiazepines Scrn POSITIVE H, Urine Cocaine Screen NEGATIVE, U Cannabinoids Screen NEGATIVE, Ur Drug Screen Comment 02/07/19 18:30: Urine Color Yellow, Urine Clarity Sl. Cloudy, Urine pH 6.0, Ur Specific Bertrand 1.020, Urine Protein Negative, Urine Glucose (UA) Normal, Urine Ketones Negative, Urine Occult Blood Negative, Urine Nitrite Negative, Urine Bilirubin Negative, Urine Urobilinogen Normal, Ur Leukocyte Esterase Negative, Urine RBC 0 SEEN, Urine WBC 0 SEEN, Ur Squamous Epith Cells 0 SEEN, Urine Bacteria 0 SEEN, Urine Mucus 0 SEEN 02/07/19 20:30: Troponin I 0.173 H 02/08/19 05:10: Sodium 140, Potassium 4.1, Chloride 108 H, Carbon Dioxide 28.0, Anion Gap 4 L, BUN 14, Creatinine 0.78, Estim Creat Clear Calc 150.78, Est GFR (MDRD) Af Amer 156, Est GFR (MDRD) Non-Af 129, BUN/Creatinine Ratio 17.9, Glucose 97, Calcium 8.0 L, Magnesium 1.9, Total Bilirubin 0.70, Direct Bilirubin 0.34 H, AST 270 H, ALT 363 H, Alkaline Phosphatase 110, Total Protein 6.0 L, Albumin 2.8 L, Globulin 3.2, Albumin/Globulin Ratio 0.9, TSH 2.17 02/08/19 05:10: WBC 5.8, RBC 4.34 L, Hgb 11.9 L, Hct 38.4 L, MCV 88.5, MCH 27.4, MCHC 31.0 L, RDW Std Deviation 41.8, RDW Coeff of Sherrill 12.8, Plt Count 180, MPV 9.6, Immature Gran % (Auto) 0.200, Neut % (Auto) 38.7 L, Lymph % (Auto) 44.7 H, Gratiot % (Auto) 10.6 H, Eos % (Auto) 5.5 H, Baso % (Auto) 0.3, Absolute Neuts (auto) 2.2, Absolute Lymphs (auto) 2.58, Nucleated RBC % 0 02/08/19 14:29: Hepatitis A IgM Ab Pending, Hepatitis A Ab Total Pending, Hep Bs Antigen Pending, Hep B Core Total Ab Pending, Hep B Core IgM Ab Pending Current Medications Acetaminophen (Tylenol) 650 mg PO Q6H PRN PRN PRN Reason: Pain Score 1-3/Temp > 100.7 F Al Hydroxide/Mg Hydroxide (Mylanta Ii) 30 ml PO Q6H PRN PRN PRN Reason: dyspesia Albuterol Sulfate (Ventolin Aerosols) 2.5 mg INHALATION Q2H PRN PRN PRN Reason: SOB/Wheezing Aspirin (Ecotrin) 81 mg PO DAILY@0800 [facility] Last Admin: 02/08/19 05:25 Dose: 81 mg Documented by: Bisacodyl (Dulcolax) 10 mg RECTAL DAILY PRN PRN Reason: Constipation Buprenorphine HCl (Buprenorphine Hcl) 4 mg SL Q8H [facility]; Taper Stop: 02/10/19 21:59 Last Admin: 02/08/19 10:06 Dose: 4 mg Documented by: Chlordiazepoxide (Librium) 25 mg PO Q6H PRN PRN PRN Reason: Moderate-Severe Anxiety Dicyclomine HCl (Bentyl) 20 mg PO Q6H PRN PRN PRN Reason: Abdomnial Discomfort Glucagon () 1 mg IM .X1 PRN PRN Reason: Hypoglycemia Heparin Sodium (Beef Lung) (Heparin 500 Unit/5 Ml (100/Ml)) 500 unit IV UD PRN PRN Reason: HEPARIN FLUSH Hydroxyzine HCl (Vistaril Vial) 50 mg IM Q6H PRN PRN PRN Reason: Breakthrough Anxiety Hydroxyzine Pamoate (Vistaril Pamoate Capsule) 50 mg PO Q6H PRN PRN PRN Reason: Mild Anxiety Sodium Chloride () 1,000 mls @ 15 mls/hr IV .Q48H [facility] Last Admin: 02/08/19 08:35 Dose: Not Given Documented by: Sodium Chloride () 1,000 mls @ 100 mls/hr IV .Q10H [facility] Last Admin: 02/08/19 14:13 Dose: 100 mls/hr Documented by: Dextrose (Dextrose 10%-Water) 250 mls @ 999 mls/hr IV .Q16M PRN; Protocol PRN Reason: HYPOGLYCEMIA Ibuprofen (Motrin) 400 mg PO Q8H PRN PRN PRN Reason: Pain Score 1-5/10 Labetalol HCl (Trandate) 5 mg IV X1 PRN PRN Reason: SBP > 160 prior to sheath pull Loperamide HCl (Imodium) 2 - 4 mg PO UD PRN PRN Reason: LOOSE STOOLS Melatonin (Melatonin) 3 mg PO QHS PRN PRN PRN Reason: INSOMNIA Methocarbamol (Methocarbamol) 750 mg PO Q6H PRN PRN PRN Reason: Muscle Aches Metoprolol Tartrate (Lopressor (Beta Jay)) 12.5 mg PO BID [facility] Last Admin: 02/08/19 10:07 Dose: 12.5 mg Documented by: Nicotine (Nicoderm Cq (Pbkc)) 21 mg TRANSDERM. DAILY [facility] Last Admin: 02/08/19 10:07 Dose: 21 mg Documented by: Nitroglycerin (Nitrostat) 0.4 mg SUBLINGUAL Q5M PRN PRN Reason: CARDIAC/CHEST PAIN Ondansetron HCl (Zofran) 4 mg IV Q8H PRN PRN PRN Reason: NAUSEA/VOMITING Last Admin: 02/07/19 23:34 Dose: 4 mg Documented by: Ondansetron HCl (Zofran Odt) 4 mg PO Q6H PRN PRN PRN Reason: NAUSEA Pramipexole Dihydrochloride (Mirapex) 0.25 mg PO Q12H PRN PRN PRN Reason: Restless Legs Prochlorperazine Edisylate (Compazine Iv) 5 mg IV Q4H PRN PRN PRN Reason: Breakthrough Nausea/Vomiting Senna/Docusate Sodium (Senokot-S, Zeina-Colace) 2 tablet PO BID PRN PRN PRN Reason: Constipation Sodium Chloride () 10 - 40 ml IV UD PRN PRN Reason: SALINE FLUSH Trazodone HCl (Desyrel) 50 mg PO QHS [facility] Last Admin: 02/07/19 21:43 Dose: 50 mg Documented by: Assessment/Plan Patient seen by Aide ORTIZ under my supervision Patient seen and examined. He was admitted with a complaint of chest pain. Patient has a history of polysubstance abuse including heroin, cocaine, fentanyl and opioids. In fact according to his parents, any pills he finds he will take. Patient had been seen in [place] ER where he was found to have elevated troponin on the day prior to admission. He was transferred to [facility] in [place] for elevated troponin. However, was that he overdosed in the bathroom after using IV fentanyl and was given Narcan. He later signed out AMA. Subsequently developed chest pain and came into [facility] ED. Initial troponin was 0.27. Cardiology was consulted. EKG showed J-point elevation in the V2 and V3 leads and chest x-ray showed no acute cardiopulmonary process. Patient had cardiac cath on 02/08/2019 which showed clean coronaries. Patient was seen and examined after cardiac cath. Patient was quite lethargic and so not really answering questions. His parents and brother were by his bedside. Unable to do review of systems as patient was lethargic. Family is interested in inpatient treatment for him and have made inquiries at 180. Labs and vitals reviewed. o/e: Vital Signs Height 5 ft 10 in Weight: 174 lb 9.698 oz Weight in Pounds 174.6 lbs Pulse Ox 94 Temperature 98.0 F Pulse Rate 76 Respiratory Rate 18 Blood Pressure 96/61 Blood Pressure Position Semi-Fowlers General: - - lethargic HEENT: Atraumatic, PERRLA, EOMI, Normocephalic Neck: Supple, No JVD, Negative Carotid Bruits Lungs: Clear to auscultation, Normal air movement Cardiovascular: Regular rate, Regular Rhythm, Normal S1, Normal S2, No murmurs Abdomen: Bowel Sounds Present, Soft, Non Tender, Non-Distended Extremities: No clubbing, No cyanosis, No edema, Capillary Refill Less than 3 Seconds Skin: No rashes, No breakdown Musculoskeletal: No Tenderness to Palpation of Joints or Extremities; cath site in right groin clean, no bleeding or redness Neurological: Cranial nerves II-XII grossly intact, Neuro grossly intact Psych/Mental Status: - - Unable to assess due to lethargy Plan is for inpatient rehab placement once patient is fully aroused. On buprenorphine withdrawal protocol. Plavix discontinued as coronaries were clean. Continue Lopressor 12.5 mg twice daily. Continue aspirin 81 mg daily. Liver enzymes were also mildly elevated with AST of 270 and ALT of 363. Since he has a history of IV use, hepatitis is likely consideration so we will check hepatitis panel. Rest of management as per ANGEL Barry's notes which I reviewed and endorsed. Code Visit Inpatient E&M: 57523 Subs Hosp L2
--- NOTE | 2019-02-08 14:17 | CASEMGMT ---
MIKIE spoke with patient's parents as patient was still sleeping. The said they have been talking with Jean Marie at [facility] about getting patient into [facility]. Patient had an assessment in September so they would need to update that assessment. He said they may have a bed for him at [facility] on Tuesday. MIKIE told them that it all depends on what he wants to do when he wakes up. They said they understand this. MIKIE told them MIKIE can call Jean Marie and touch base regarding plan. MIKIE told them they will want him to be through his withdrawal before they would take him and that may take a few days. MIKIE told them SW will continue to follow. MIKIE called Jean Marie at [facility]. MIKIE did not use patient's name as SW does not have a release of information signed by patient yet. He said patient would need an updated assessment, they could try and do this by phone when it is time. They do possibly have a bed in [facility] on Tuesday. He said he does not work with residential much, as Renetta is the nurse that does. She knows more detailed information about availability etc. MIKIE told him MIKIE can follow up with him after MIKIE speaks with patient. Jean Marie's direct number is [phone]. MIKIE to follow. Evita GONZALES MSW
[2019-02-08] MEDS: traZODone 50 MG Tablet PO (21:14)
[2019-02-09] VITALS (15 sets, daily range): BP systolic 101–128; BP diastolic 57–70; PULSE 74–91; RESP 14–16; TEMP 36.4–37.4; O2SAT 92–99
[2019-02-09] MEDS: 0.9% Normal Saline 1,000 ML 100 ML IV ×3 (00:08→19:22)
[2019-02-09] MEDS: Buprenorphine HCl 2 MG TAB.SUBL SL ×3 (02:16→21:37)
[2019-02-09 07:05] LABS: AST(SGOT) 424 U/L (15-37); Alanine Aminotransfer ALT/SGPT 484 U/L (16-61); Albumin, Serum 2.6 g/dL (3.2-5.0); Alkaline Phosphatase 105 U/L (45-117); Bilirubin, Direct 0.36 mg/dL (0.00-0.30); Globulin 3.4 g/dL (2.2-4.2)
[2019-02-09] MEDS: Metoprolol Tartrate 25 MG Tablet 12.5 MG PO ×2 (09:28→21:38)
[2019-02-09] MEDS: Aspirin E.C. 81 MG Tablet PO (09:28)
--- NOTE | 2019-02-09 12:45 | PN_ITS ---
<Aide Wild - Last Filed: 02/09/19 12:50> Patient Problems: Active and Suspected Problems Elevated troponin (Acute) Chest pain (Acute) Subjective: Patient seen and examined. Patient remains drowsy and does not awaken to engage in conversation. Parents at bedside who reports patient called him last evening and earlier this morning. Patient is not displaying any significant withdrawal symptoms. Per mother at bedside, and patient bed will be available on Tuesday at treatment facility. Also of note, mother reports patient tested positive for hepatitis A and hepatitis C during recent hospitalization. - Physical Exam Vitals/I&O's: Vital Signs Temp Pulse Resp BP Pulse Ox 97.6 F L 87 14 115/63 96 02/09/19 09:04 02/09/19 09:28 02/09/19 09:04 02/09/19 09:04 02/09/19 09:04 Oxygen Delivery Method Room Air Weight: 174 lb 9.698 oz Body Mass Index (BMI) 25.0 Intake and Output for Last 24 Hours 02/07/19 02/08/19 02/09/19 23:59 23:59 23:59 Intake Total 2415.00 / 2655.00 2403.33 / 2403.33 Output Total 700 / 700 750 / 750 Balance 1715.00 / 1955.00 1653.33 / 1653.33 General: - - Drowsy, no apparent distress HEENT: Atraumatic, PERRLA, EOMI, Normocephalic Neck: Supple, No JVD, Negative Carotid Bruits Lungs: Clear to auscultation, Normal air movement Cardiovascular: Regular rate, Regular Rhythm, Normal S1, Normal S2, No murmurs Abdomen: Bowel Sounds Present, Soft, Non Tender Extremities: No clubbing, No cyanosis, No edema, Capillary Refill Less than 3 Seconds Skin: No rashes, No breakdown Musculoskeletal: No Tenderness to Palpation of Joints or Extremities Neurological: Cranial nerves II-XII grossly intact, Neuro grossly intact Psych/Mental Status: - - Unable to assess Laboratory Results 02/08/19 14:29: Hepatitis A IgM Ab Pending, Hepatitis A Ab Total Pending, Hep Bs Antigen Pending, Hep B Core Total Ab Pending, Hep B Core IgM Ab Pending 02/09/19 06:00: Total Bilirubin 0.70, Direct Bilirubin 0.36 H, AST 424 H, ALT 484 H, Alkaline Phosphatase 105, Total Protein 6.0 L, Albumin 2.6 L, Globulin 3.4 Current Medications Acetaminophen (Tylenol) 650 mg PO Q6H PRN PRN PRN Reason: Pain Score 1-3/Temp > 100.7 F Al Hydroxide/Mg Hydroxide (Mylanta Ii) 30 ml PO Q6H PRN PRN PRN Reason: dyspesia Albuterol Sulfate (Ventolin Aerosols) 2.5 mg INHALATION Q2H PRN PRN PRN Reason: SOB/Wheezing Aspirin (Ecotrin) 81 mg PO DAILY@0800 [facility] Last Admin: 02/09/19 09:28 Dose: 81 mg Documented by: Bisacodyl (Dulcolax) 10 mg RECTAL DAILY PRN PRN Reason: Constipation Buprenorphine HCl (Buprenorphine Hcl) 2 mg SL Q12H [facility]; Taper Stop: 02/10/19 21:59 Last Admin: 02/09/19 09:27 Dose: 2 mg Documented by: Chlordiazepoxide (Librium) 25 mg PO Q6H PRN PRN PRN Reason: Moderate-Severe Anxiety Dicyclomine HCl (Bentyl) 20 mg PO Q6H PRN PRN PRN Reason: Abdomnial Discomfort Glucagon () 1 mg IM .X1 PRN PRN Reason: Hypoglycemia Heparin Sodium (Beef Lung) (Heparin 500 Unit/5 Ml (100/Ml)) 500 unit IV UD PRN PRN Reason: HEPARIN FLUSH Hydroxyzine HCl (Vistaril Vial) 50 mg IM Q6H PRN PRN PRN Reason: Breakthrough Anxiety Hydroxyzine Pamoate (Vistaril Pamoate Capsule) 50 mg PO Q6H PRN PRN PRN Reason: Mild Anxiety Sodium Chloride () 1,000 mls @ 15 mls/hr IV .Q48H [facility] Last Admin: 02/08/19 08:35 Dose: Not Given Documented by: Sodium Chloride () 1,000 mls @ 100 mls/hr IV .Q10H [facility] Last Admin: 02/09/19 09:29 Dose: 100 mls/hr Documented by: Dextrose (Dextrose 10%-Water) 250 mls @ 999 mls/hr IV .Q16M PRN; Protocol PRN Reason: HYPOGLYCEMIA Ibuprofen (Motrin) 400 mg PO Q8H PRN PRN PRN Reason: Pain Score 1-5/10 Labetalol HCl (Trandate) 5 mg IV X1 PRN PRN Reason: SBP > 160 prior to sheath pull Loperamide HCl (Imodium) 2 - 4 mg PO UD PRN PRN Reason: LOOSE STOOLS Melatonin (Melatonin) 3 mg PO QHS PRN PRN PRN Reason: INSOMNIA Methocarbamol (Methocarbamol) 750 mg PO Q6H PRN PRN PRN Reason: Muscle Aches Metoprolol Tartrate (Lopressor (Beta Jay)) 12.5 mg PO BID [facility] Last Admin: 02/09/19 09:28 Dose: 12.5 mg Documented by: Nicotine (Nicoderm Cq (Pbkc)) 21 mg TRANSDERM. DAILY [facility] Last Admin: 02/09/19 09:28 Dose: Not Given Documented by: Nitroglycerin (Nitrostat) 0.4 mg SUBLINGUAL Q5M PRN PRN Reason: CARDIAC/CHEST PAIN Ondansetron HCl (Zofran) 4 mg IV Q8H PRN PRN PRN Reason: NAUSEA/VOMITING Last Admin: 02/07/19 23:34 Dose: 4 mg Documented by: Ondansetron HCl (Zofran Odt) 4 mg PO Q6H PRN PRN PRN Reason: NAUSEA Pramipexole Dihydrochloride (Mirapex) 0.25 mg PO Q12H PRN PRN PRN Reason: Restless Legs Prochlorperazine Edisylate (Compazine Iv) 5 mg IV Q4H PRN PRN PRN Reason: Breakthrough Nausea/Vomiting Senna/Docusate Sodium (Senokot-S, Zeina-Colace) 2 tablet PO BID PRN PRN PRN Reason: Constipation Sodium Chloride () 10 - 40 ml IV UD PRN PRN Reason: SALINE FLUSH Trazodone HCl (Desyrel) 50 mg PO QHS [facility] Last Admin: 02/08/19 21:14 Dose: 50 mg Documented by: Medical Necessity - Tobacco Use Smoking Status: Current every day smoker Tobacco Use: Cigarettes Assessment/Plan All Active Problems Elevated troponin (Acute) Chest pain (Acute) 1. NSTEMI-cardiology consulted. Patient underwent cardiac catheterization which demonstrated normal coronary arteries. Plavix discontinued. Continue Lopressor 12.5 mg twice daily. Continue aspirin. 2. Polysubstance use-IV heroin, fentanyl and methamphetamine. Tox screen positive for amphetamines and benzodiazepines. Patient had recent Narcan administration x2 following overdose. Family seeking inpatient treatment. Social work following. Buprenorphine taper ordered. PRN regimen for somatic complaints. 3. Transaminitis-hepatitis panel pending however family reports patient was positive for hepatitis A and hepatitis C during recent hospitalization at outside facility. Will need outpatient follow-up when sobriety is obtained. 4. Tobacco dependence-encouraged cessation. Nicotine replacement patch. DVT prophylaxis-low risk, early ambulation. Discharge planning: Pending evaluation for inpatient treatment facility. This patient was seen by ANGEL Barry under the supervision of Dr. Phillips. <Beti Phillips - Last Filed: 02/09/19 14:00> - Physical Exam Vitals/I&O's: Vital Signs Temp Pulse Resp BP Pulse Ox 97.6 F L 87 14 115/63 96 02/09/19 09:04 02/09/19 09:28 02/09/19 09:04 02/09/19 09:04 02/09/19 09:04 Oxygen Delivery Method Room Air Weight: 174 lb 9.698 oz Body Mass Index (BMI) 25.0 Intake and Output for Last 24 Hours 02/07/19 02/08/19 02/09/19 23:59 23:59 23:59 Intake Total 2415.00 / 2655.00 2403.33 / 2403.33 Output Total 700 / 700 750 / 750 Balance 1715.00 / 1955.00 1653.33 / 1653.33 Laboratory Results 02/08/19 14:29: Hepatitis A IgM Ab Pending, Hepatitis A Ab Total Pending, Hep Bs Antigen Pending, Hep B Core Total Ab Pending, Hep B Core IgM Ab Pending 02/09/19 06:00: Total Bilirubin 0.70, Direct Bilirubin 0.36 H, AST 424 H, ALT 484 H, Alkaline Phosphatase 105, Total Protein 6.0 L, Albumin 2.6 L, Globulin 3.4 Current Medications Acetaminophen (Tylenol) 650 mg PO Q6H PRN PRN PRN Reason: Pain Score 1-3/Temp > 100.7 F Al Hydroxide/Mg Hydroxide (Mylanta Ii) 30 ml PO Q6H PRN PRN PRN Reason: dyspesia Albuterol Sulfate (Ventolin Aerosols) 2.5 mg INHALATION Q2H PRN PRN PRN Reason: SOB/Wheezing Aspirin (Ecotrin) 81 mg PO DAILY@0800 [facility] Last Admin: 02/09/19 09:28 Dose: 81 mg Documented by: Bisacodyl (Dulcolax) 10 mg RECTAL DAILY PRN PRN Reason: Constipation Buprenorphine HCl (Buprenorphine Hcl) 2 mg SL Q12H [facility]; Taper Stop: 02/10/19 21:59 Last Admin: 02/09/19 09:27 Dose: 2 mg Documented by: Chlordiazepoxide (Librium) 25 mg PO Q6H PRN PRN PRN Reason: Moderate-Severe Anxiety Dicyclomine HCl (Bentyl) 20 mg PO Q6H PRN PRN PRN Reason: Abdomnial Discomfort Glucagon () 1 mg IM .X1 PRN PRN Reason: Hypoglycemia Heparin Sodium (Beef Lung) (Heparin 500 Unit/5 Ml (100/Ml)) 500 unit IV UD PRN PRN Reason: HEPARIN FLUSH Hydroxyzine HCl (Vistaril Vial) 50 mg IM Q6H PRN PRN PRN Reason: Breakthrough Anxiety Hydroxyzine Pamoate (Vistaril Pamoate Capsule) 50 mg PO Q6H PRN PRN PRN Reason: Mild Anxiety Sodium Chloride () 1,000 mls @ 15 mls/hr IV .Q48H [facility] Last Admin: 02/08/19 08:35 Dose: Not Given Documented by: Sodium Chloride () 1,000 mls @ 100 mls/hr IV .Q10H [facility] Last Admin: 02/09/19 09:29 Dose: 100 mls/hr Documented by: Dextrose (Dextrose 10%-Water) 250 mls @ 999 mls/hr IV .Q16M PRN; Protocol PRN Reason: HYPOGLYCEMIA Ibuprofen (Motrin) 400 mg PO Q8H PRN PRN PRN Reason: Pain Score 1-5/10 Labetalol HCl (Trandate) 5 mg IV X1 PRN PRN Reason: SBP > 160 prior to sheath pull Loperamide HCl (Imodium) 2 - 4 mg PO UD PRN PRN Reason: LOOSE STOOLS Melatonin (Melatonin) 3 mg PO QHS PRN PRN PRN Reason: INSOMNIA Methocarbamol (Methocarbamol) 750 mg PO Q6H PRN PRN PRN Reason: Muscle Aches Metoprolol Tartrate (Lopressor (Beta Jay)) 12.5 mg PO BID [facility] Last Admin: 02/09/19 09:28 Dose: 12.5 mg Documented by: Nicotine (Nicoderm Cq (Pbkc)) 21 mg TRANSDERM. DAILY [facility] Last Admin: 02/09/19 09:28 Dose: Not Given Documented by: Nitroglycerin (Nitrostat) 0.4 mg SUBLINGUAL Q5M PRN PRN Reason: CARDIAC/CHEST PAIN Ondansetron HCl (Zofran) 4 mg IV Q8H PRN PRN PRN Reason: NAUSEA/VOMITING Last Admin: 02/07/19 23:34 Dose: 4 mg Documented by: Ondansetron HCl (Zofran Odt) 4 mg PO Q6H PRN PRN PRN Reason: NAUSEA Pramipexole Dihydrochloride (Mirapex) 0.25 mg PO Q12H PRN PRN PRN Reason: Restless Legs Prochlorperazine Edisylate (Compazine Iv) 5 mg IV Q4H PRN PRN PRN Reason: Breakthrough Nausea/Vomiting Senna/Docusate Sodium (Senokot-S, Zeina-Colace) 2 tablet PO BID PRN PRN PRN Reason: Constipation Sodium Chloride () 10 - 40 ml IV UD PRN PRN Reason: SALINE FLUSH Trazodone HCl (Desyrel) 50 mg PO QHS [facility] Last Admin: 02/08/19 21:14 Dose: 50 mg Documented by: Assessment/Plan Patient seen by ANGEL Barry under my supervision. Patient seen and examined. Father was by his bedside. Patient was awake and alert and in plan of mild pain at the site of the cath in his right groin. Review of systems otherwise negative. Patient states he is willing to try inpatient rehab. Labs and vitals reviewed. o/e: Vital Signs Height 5 ft 10 in Weight: 174 lb 9.698 oz Weight in Pounds 174.6 lbs Pulse Ox 96 Temperature 97.6 F Pulse Rate 87 Respiratory Rate 14 Blood Pressure 115/63 Blood Pressure Position Semi-Fowlers General: -alert, oriented, cooperative HEENT: Atraumatic, PERRLA, EOMI, Normocephalic Neck: Supple, No JVD, Negative Carotid Bruits Lungs: Clear to auscultation, Normal air movement Cardiovascular: Regular rate, Regular Rhythm, Normal S1, Normal S2, No murmurs Abdomen: Bowel Sounds Present, Soft, Non Tender, Non-Distended Extremities: No clubbing, No cyanosis, No edema, Capillary Refill Less than 3 Seconds Skin: No rashes, No breakdown Musculoskeletal: No Tenderness to Palpation of Joints or Extremities; cath site in right groin clean, no bleeding or redness Neurological: Cranial nerves II-XII grossly intact, Neuro grossly intact Psych/Mental Status: - normal, appropriate Plan is for inpatient rehab placement. Patient states he is interested in 180. On buprenorphine withdrawal protocol. Lopressor 12.5 mg twice daily and aspirin 81 mg daily. Hepatitis panel is pending. Case management on board to help with discharge planning., Liver enzymes have trended up slightly. Hepatitis panel pending. Rest Of management as per ANGEL Barry's notes which I have reviewed and endorsed. Code Visit Code Visit Inpatient E&M: 33095 Subs Hosp L2
--- NOTE | 2019-02-09 14:19 | CASEMGMT ---
MIKIE spoke with Renetta at [facility]. She said that they would have a bed at [facility] for patient on Tuesday. She asked if SW could fax her some information. MIKIE told her SW has to get patient to agree first and sign release. She said they did make an appt for patient for 02-12 at 9am for assessment. MIKIE was able to wake patient up enough to ask him if he is interested treatment from [facility]. MIKIE told him it would be inpatient. He said, Possibly. MIKIE asked him if it is okay to fax some of his information to [facility]. He was ok with this and signed the consent form. MIKIE faxed H&P and demographics sheet to [facility]. MIKIE also called Renetta at [facility] and left her a voice mail letting her know patient did sign release. Plan: [facility] on Tuesday to complete assessment and transition to [facility]. This is as long as patient remains in agreement. Evita GONZALES MSW
[2019-02-09] MEDS: traZODone 50 MG Tablet PO (21:37)
[2019-02-09] MEDS: Dicyclomine 10 MG Capsule 20 MG PO (21:37)
[2019-02-09] MEDS: Ibuprofen 400 MG Tablet PO (21:37)
[2019-02-10] VITALS (17 sets, daily range): BP systolic 109–141; BP diastolic 60–84; PULSE 60–85; RESP 12–16; TEMP 36.4–36.8; O2SAT 93–99
[2019-02-10] MEDS: 0.9% Normal Saline 1,000 ML 100 ML IV ×2 (05:37→15:48)
[2019-02-10 06:16] LABS: HEPATITIS B SURFACE AG Negative (Negative); Hepatitis A AB, Total Positive (Negative); Hepatitis B Core AB IgM Negative (Negative); Hepatitis B Core Ab Total Negative (Negative); Hepatitis C Ab >11.0 s/co ratio (0.0-0.9)
[2019-02-10 07:08] LABS: AST(SGOT) 389 U/L (15-37); Alanine Aminotransfer ALT/SGPT 469 U/L (16-61); Albumin, Serum 2.6 g/dL (3.2-5.0); Alkaline Phosphatase 123 U/L (45-117); Bilirubin, Direct 0.45 mg/dL (0.00-0.30); Globulin 3.2 g/dL (2.2-4.2); Protein, Total 5.8 g/dL (6.4-8.2)
[2019-02-10] MEDS: Buprenorphine HCl 2 MG TAB.SUBL SL (09:17)
[2019-02-10] MEDS: Aspirin E.C. 81 MG Tablet PO (09:17)
[2019-02-10] MEDS: Metoprolol Tartrate 25 MG Tablet 12.5 MG PO ×2 (09:18→21:56)
--- NOTE | 2019-02-10 10:09 | PN_ITS ---
<Aide Wild - Last Filed: 02/10/19 10:16> Patient Problems: Active and Suspected Problems Elevated troponin (Acute) Chest pain (Acute) Subjective: Patient seen and examined. More alert today. Complains of abdominal cramping. Denies nausea, vomiting, diarrhea. Agreeable to inpatient treatment facility on Tuesday. - Physical Exam Vitals/I&O's: Vital Signs Temp Pulse Resp BP Pulse Ox 97.5 F L 68 14 124/71 H 97 02/10/19 08:39 02/10/19 09:18 02/10/19 08:39 02/10/19 09:18 02/10/19 08:39 Oxygen Delivery Method Room Air Weight: 174 lb 9.698 oz Body Mass Index (BMI) 25.0 Intake and Output for Last 24 Hours 02/08/19 02/09/19 02/10/19 23:59 23:59 23:59 Intake Total 2415.00 / 2655.00 3631.66 / 3631.66 1959 Output Total 700 / 700 750 / 750 Balance 1715.00 / 1955.00 2881.66 / 2881.66 1959 General: Alert, Oriented x3, Cooperative HEENT: Atraumatic, PERRLA, EOMI, Normocephalic Neck: Supple, No JVD, Negative Carotid Bruits Lungs: Clear to auscultation, Normal air movement Cardiovascular: Regular rate, Regular Rhythm, Normal S1, Normal S2, No murmurs Abdomen: Bowel Sounds Present, Soft, Non Tender Extremities: No clubbing, No cyanosis, No edema, Capillary Refill Less than 3 Seconds Skin: No rashes, No breakdown Musculoskeletal: No Tenderness to Palpation of Joints or Extremities Neurological: Cranial nerves II-XII grossly intact, Neuro grossly intact Psych/Mental Status: Flat Affect Laboratory Results 02/10/19 06:28: Total Bilirubin 0.70, Direct Bilirubin 0.45 H, AST 389 H, ALT 469 H, Alkaline Phosphatase 123 H, Total Protein 5.8 L, Albumin 2.6 L, Globulin 3.2 Current Medications Acetaminophen (Tylenol) 650 mg PO Q6H PRN PRN PRN Reason: Pain Score 1-3/Temp > 100.7 F Al Hydroxide/Mg Hydroxide (Mylanta Ii) 30 ml PO Q6H PRN PRN PRN Reason: dyspesia Albuterol Sulfate (Ventolin Aerosols) 2.5 mg INHALATION Q2H PRN PRN PRN Reason: SOB/Wheezing Aspirin (Ecotrin) 81 mg PO DAILY@0800 [facility] [place] Last Admin: 02/10/19 09:17 Dose: 81 mg Documented by: Bisacodyl (Dulcolax) 10 mg RECTAL DAILY PRN PRN Reason: Constipation Buprenorphine HCl (Buprenorphine Hcl) 2 mg SL Q12H [facility]; Taper Stop: 02/10/19 21:59 Last Admin: 02/10/19 09:17 Dose: 2 mg Documented by: Chlordiazepoxide (Librium) 25 mg PO Q6H PRN PRN PRN Reason: Moderate-Severe Anxiety Dicyclomine HCl (Bentyl) 20 mg PO Q6H PRN PRN PRN Reason: Abdomnial Discomfort Last Admin: 02/09/19 21:37 Dose: 20 mg Documented by: Glucagon () 1 mg IM .X1 PRN PRN Reason: Hypoglycemia Heparin Sodium (Beef Lung) (Heparin 500 Unit/5 Ml (100/Ml)) 500 unit IV UD PRN PRN Reason: HEPARIN FLUSH Hydroxyzine HCl (Vistaril Vial) 50 mg IM Q6H PRN PRN PRN Reason: Breakthrough Anxiety Hydroxyzine Pamoate (Vistaril Pamoate Capsule) 50 mg PO Q6H PRN PRN PRN Reason: Mild Anxiety Sodium Chloride () 1,000 mls @ 15 mls/hr IV .Q48H [facility] Last Admin: 02/10/19 08:23 Dose: Not Given Documented by: Sodium Chloride () 1,000 mls @ 100 mls/hr IV .Q10H [facility] [place] Last Admin: 02/10/19 05:37 Dose: 100 mls/hr Documented by: Dextrose (Dextrose 10%-Water) 250 mls @ 999 mls/hr IV .Q16M PRN; Protocol PRN Reason: HYPOGLYCEMIA Ibuprofen (Motrin) 400 mg PO Q8H PRN PRN PRN Reason: Pain Score 1-5/10 Last Admin: 02/09/19 21:37 Dose: 400 mg Documented by: Labetalol HCl (Trandate) 5 mg IV X1 PRN PRN Reason: SBP > 160 prior to sheath pull Loperamide HCl (Imodium) 2 - 4 mg PO UD PRN PRN Reason: LOOSE STOOLS Melatonin (Melatonin) 3 mg PO QHS PRN PRN PRN Reason: INSOMNIA Methocarbamol (Methocarbamol) 750 mg PO Q6H PRN PRN PRN Reason: Muscle Aches Metoprolol Tartrate (Lopressor (Beta Jay)) 12.5 mg PO BID [facility] [place] Last Admin: 02/10/19 09:18 Dose: 12.5 mg Documented by: Nicotine (Nicoderm Cq (Pbkc)) 21 mg TRANSDERM. DAILY [facility] Last Admin: 02/10/19 09:18 Dose: Not Given Documented by: Nitroglycerin (Nitrostat) 0.4 mg SUBLINGUAL Q5M PRN PRN Reason: CARDIAC/CHEST PAIN Ondansetron HCl (Zofran) 4 mg IV Q8H PRN PRN PRN Reason: NAUSEA/VOMITING Last Admin: 02/07/19 23:34 Dose: 4 mg Documented by: Ondansetron HCl (Zofran Odt) 4 mg PO Q6H PRN PRN PRN Reason: NAUSEA Pramipexole Dihydrochloride (Mirapex) 0.25 mg PO Q12H PRN PRN PRN Reason: Restless Legs Prochlorperazine Edisylate (Compazine Iv) 5 mg IV Q4H PRN PRN PRN Reason: Breakthrough Nausea/Vomiting Senna/Docusate Sodium (Senokot-S, Zeina-Colace) 2 tablet PO BID PRN PRN PRN Reason: Constipation Sodium Chloride () 10 - 40 ml IV UD PRN PRN Reason: SALINE FLUSH Trazodone HCl (Desyrel) 50 mg PO QHS [facility] [place] Last Admin: 02/09/19 21:37 Dose: 50 mg Documented by: Medical Necessity - Tobacco Use Smoking Status: Current every day smoker Tobacco Use: Cigarettes Assessment/Plan All Active Problems Elevated troponin (Acute) Chest pain (Acute) 1. NSTEMI-cardiology consulted. Patient underwent cardiac catheterization which demonstrated normal coronary arteries. Plavix discontinued. Continue Lopressor 12.5 mg twice daily. Continue aspirin. 2. Polysubstance use-IV heroin, fentanyl and methamphetamine. Tox screen positive for amphetamines and benzodiazepines. Patient had recent Narcan administration x2 following overdose. Family seeking inpatient treatment. Social work following. Buprenorphine taper ordered. PRN regimen for somatic complaints. 3. Transaminitis-hepatitis panel pending however family reports patient was positive for hepatitis A and hepatitis C during recent hospitalization at outside facility. Will need outpatient follow-up when sobriety is obtained. 4. Tobacco dependence-encouraged cessation. Nicotine replacement patch. DVT prophylaxis-low risk, early ambulation. Discharge planning: Plan for discharge to inpatient treatment facility Tuesday. This patient was seen by ANGEL Barry under the supervision of Dr. Phillips. <Beti Phillips - Last Filed: 02/10/19 13:40> - Physical Exam Vitals/I&O's: Vital Signs Temp Pulse Resp BP Pulse Ox 98 F 85 16 124/76 H 97 02/10/19 12:38 02/10/19 12:38 02/10/19 12:38 02/10/19 12:38 02/10/19 12:38 Oxygen Delivery Method Room Air Weight: 174 lb 9.698 oz Body Mass Index (BMI) 25.0 Intake and Output for Last 24 Hours 02/08/19 02/09/19 02/10/19 23:59 23:59 23:59 Intake Total 2415.00 / 2655.00 3631.66 / 3631.66 3053.33 / 3053.33 Output Total 700 / 700 750 / 750 Balance 1715.00 / 1955.00 2881.66 / 2881.66 3053.33 / 3053.33 Laboratory Results 02/08/19 14:29: Hepatitis A IgM Ab Positive H, Hepatitis A Ab Total Positive H, Hep Bs Antigen Negative, Hep B Core Total Ab Negative, Hep B Core IgM Ab Negative, Hepatitis C Ab Confirm >11.0 H 02/10/19 06:28: Total Bilirubin 0.70, Direct Bilirubin 0.45 H, AST 389 H, ALT 469 H, Alkaline Phosphatase 123 H, Total Protein 5.8 L, Albumin 2.6 L, Globulin 3.2 Current Medications Acetaminophen (Tylenol) 650 mg PO Q6H PRN PRN PRN Reason: Pain Score 1-3/Temp > 100.7 F Al Hydroxide/Mg Hydroxide (Mylanta Ii) 30 ml PO Q6H PRN PRN PRN Reason: dyspesia Albuterol Sulfate (Ventolin Aerosols) 2.5 mg INHALATION Q2H PRN PRN PRN Reason: SOB/Wheezing Aspirin (Ecotrin) 81 mg PO DAILY@0800 [facility] [place] Last Admin: 02/10/19 09:17 Dose: 81 mg Documented by: Bisacodyl (Dulcolax) 10 mg RECTAL DAILY PRN PRN Reason: Constipation Buprenorphine HCl (Buprenorphine Hcl) 2 mg SL Q12H [facility] [place]; Taper Stop: 02/10/19 21:59 Last Admin: 02/10/19 09:17 Dose: 2 mg Documented by: Chlordiazepoxide (Librium) 25 mg PO Q6H PRN PRN PRN Reason: Moderate-Severe Anxiety Dicyclomine HCl (Bentyl) 20 mg PO Q6H PRN PRN PRN Reason: Abdomnial Discomfort Last Admin: 02/09/19 21:37 Dose: 20 mg Documented by: Glucagon () 1 mg IM .X1 PRN PRN Reason: Hypoglycemia Heparin Sodium (Beef Lung) (Heparin 500 Unit/5 Ml (100/Ml)) 500 unit IV UD PRN PRN Reason: HEPARIN FLUSH Hydroxyzine HCl (Vistaril Vial) 50 mg IM Q6H PRN PRN PRN Reason: Breakthrough Anxiety Hydroxyzine Pamoate (Vistaril Pamoate Capsule) 50 mg PO Q6H PRN PRN PRN Reason: Mild Anxiety Sodium Chloride () 1,000 mls @ 15 mls/hr IV .Q48H [facility] Last Admin: 02/10/19 08:23 Dose: Not Given Documented by: Sodium Chloride () 1,000 mls @ 100 mls/hr IV .Q10H [facility] Last Infusion: 02/10/19 12:57 Dose: 100 mls/hr Documented by: Dextrose (Dextrose 10%-Water) 250 mls @ 999 mls/hr IV .Q16M PRN; Protocol PRN Reason: HYPOGLYCEMIA Ibuprofen (Motrin) 400 mg PO Q8H PRN PRN PRN Reason: Pain Score 1-5/10 Last Admin: 02/09/19 21:37 Dose: 400 mg Documented by: Labetalol HCl (Trandate) 5 mg IV X1 PRN PRN Reason: SBP > 160 prior to sheath pull Loperamide HCl (Imodium) 2 - 4 mg PO UD PRN PRN Reason: LOOSE STOOLS Melatonin (Melatonin) 3 mg PO QHS PRN PRN PRN Reason: INSOMNIA Methocarbamol (Methocarbamol) 750 mg PO Q6H PRN PRN PRN Reason: Muscle Aches Metoprolol Tartrate (Lopressor (Beta Jay)) 12.5 mg PO BID [facility] [place] Last Admin: 02/10/19 09:18 Dose: 12.5 mg Documented by: Nicotine (Nicoderm Cq (Pbkc)) 21 mg TRANSDERM. DAILY [facility] [place] Last Admin: 02/10/19 09:18 Dose: Not Given Documented by: Nitroglycerin (Nitrostat) 0.4 mg SUBLINGUAL Q5M PRN PRN Reason: CARDIAC/CHEST PAIN Ondansetron HCl (Zofran) 4 mg IV Q8H PRN PRN PRN Reason: NAUSEA/VOMITING Last Admin: 02/07/19 23:34 Dose: 4 mg Documented by: Ondansetron HCl (Zofran Odt) 4 mg PO Q6H PRN PRN PRN Reason: NAUSEA Pramipexole Dihydrochloride (Mirapex) 0.25 mg PO Q12H PRN PRN PRN Reason: Restless Legs Prochlorperazine Edisylate (Compazine Iv) 5 mg IV Q4H PRN PRN PRN Reason: Breakthrough Nausea/Vomiting Senna/Docusate Sodium (Senokot-S, Zeina-Colace) 2 tablet PO BID PRN PRN PRN Reason: Constipation Sodium Chloride () 10 - 40 ml IV UD PRN PRN Reason: SALINE FLUSH Trazodone HCl (Desyrel) 50 mg PO QHS [facility] Last Admin: 02/09/19 21:37 Dose: 50 mg Documented by: Assessment/Plan Patient seen by ANGEL Barry under my supervision. Patient seen and examined. No complaints and feels well. Review of stems otherwise negative. o/e: Vital Signs Height 5 ft 10 in Weight: 174 lb 9.698 oz Weight in Pounds 174.6 lbs Pulse Ox 97 Temperature 98 F Pulse Rate 85 Respiratory Rate 16 Blood Pressure 124/76 Blood Pressure Position Semi-Fowlers General: -alert, oriented, cooperative HEENT: Atraumatic, PERRLA, EOMI, Normocephalic Neck: Supple, No JVD, Negative Carotid Bruits Lungs: Clear to auscultation, Normal air movement Cardiovascular: Regular rate, Regular Rhythm, Normal S1, Normal S2, No murmurs Abdomen: Bowel Sounds Present, Soft, Non Tender, Non-Distended Extremities: No clubbing, No cyanosis, No edema, Capillary Refill Less than 3 Seconds Skin: No rashes, No breakdown Musculoskeletal: No Tenderness to Palpation of Joints or Extremities; cath site in right groin clean, no bleeding or redness Neurological: Cranial nerves II-XII grossly intact, Neuro grossly intact Psych/Mental Status: - normal, appropriate Plan is for inpatient rehab placement. Per case management notes, patient will be assessed at 180 on Tuesday to complete assessment and to transition to the [facility]. Is as long as patient remains in agreement. Patient was counseled about this and he is agreeable. Hepatitis panel positive for hepatitis a IgM antibody and hepatitis C antibody greater than 11. Patient therefore seems to have an active hepatitis a infection. Will need follow-up with primary care doctor for referral to drying tumbler operator as appropriate. Will need liver enzymes followed on outpatient basis as well. Continue aspirin 81 mg daily and Lopressor 12.5 mg twice daily. Rest Of management as per ANGEL Barry's notes which I have reviewed and endorsed. Code Visit Inpatient E&M: 70652 Subs Hosp L2
[2019-02-10 13:26] LABS: Hep B Surface Antibodies Non Reactive (.)
[2019-02-10 13:28] LABS: Hepatitis A IgM Antibody Positive (Negative)
[2019-02-10] MEDS: Albuterol 2.5 MG/3 ML VIAL.NEB. INHALATION (16:08)
[2019-02-10] MEDS: traZODone 50 MG Tablet PO (21:56)
[2019-02-11] VITALS (15 sets, daily range): BP systolic 126–139; BP diastolic 69–80; PULSE 71–89; RESP 12–22; TEMP 36.3–37.5; O2SAT 96–100
[2019-02-11] MEDS: 0.9% Normal Saline 1,000 ML 100 ML IV (01:15)
[2019-02-11] MEDS: Metoprolol Tartrate 25 MG Tablet 12.5 MG PO ×2 (08:49→22:18)
[2019-02-11] MEDS: Aspirin E.C. 81 MG Tablet PO (08:49)
[2019-02-11] MEDS: chlordiazePOXIDE 25 MG Capsule PO (08:56)
--- NOTE | 2019-02-11 10:35 | PCM.PROGNOTE ---
<Aide Wild - Last Filed: 02/11/19 10:38> Patient Problems: Active and Suspected Problems Elevated troponin (Acute) Chest pain (Acute) Subjective: Patient seen and examined. Received Librium this morning and has been drowsy, mother at bedside. Patient has assessment for inpatient treatment facility at 9 AM tomorrow morning in which she has remained agreeable. - Physical Exam Vitals/I&O's: Vital Signs Temp Pulse Resp BP Pulse Ox 97.4 F L 71 16 136/75 H 98 02/11/19 08:30 02/11/19 08:49 02/11/19 08:30 02/11/19 08:30 02/11/19 08:30 Oxygen Delivery Method Room Air Weight: 174 lb 9.698 oz Body Mass Index (BMI) 25.0 Intake and Output for Last 24 Hours 02/09/19 02/10/19 02/11/19 23:59 23:59 23:59 Intake Total 3631.66 / 3631.66 3560.00 / 3680.00 1065 / 1065 Output Total 750 / 750 Balance 2881.66 / 2881.66 3560.00 / 3680.00 1065 / 1065 General: - - Drowsy, no apparent distress HEENT: Atraumatic, PERRLA, EOMI, Normocephalic Neck: Supple, No JVD, Negative Carotid Bruits Lungs: Clear to auscultation, Normal air movement Cardiovascular: Regular rate, Regular Rhythm, Normal S1, Normal S2, No murmurs Abdomen: Bowel Sounds Present, Soft, Non Tender Extremities: No clubbing, No cyanosis, No edema, Capillary Refill Less than 3 Seconds Skin: No rashes, No breakdown Musculoskeletal: No Tenderness to Palpation of Joints or Extremities Neurological: Cranial nerves II-XII grossly intact, Neuro grossly intact Psych/Mental Status: Flat Affect Laboratory Results 02/08/19 14:29: Hepatitis A IgM Ab Positive H, Hepatitis A Ab Total Positive H, Hep Bs Antigen Negative, Hep B Core Total Ab Negative, Hep B Core IgM Ab Negative, Hepatitis C Ab Confirm >11.0 H Current Medications Acetaminophen (Tylenol) 650 mg PO Q6H PRN PRN PRN Reason: Pain Score 1-3/Temp > 100.7 F Al Hydroxide/Mg Hydroxide (Mylanta Ii) 30 ml PO Q6H PRN PRN PRN Reason: dyspesia Albuterol Sulfate (Ventolin Aerosols) 2.5 mg INHALATION Q2H PRN PRN PRN Reason: SOB/Wheezing Last Admin: 02/10/19 16:08 Dose: 2.5 mg Documented by: Aspirin (Ecotrin) 81 mg PO DAILY@0800 [facility] Last Admin: 02/11/19 08:49 Dose: 81 mg Documented by: Bisacodyl (Dulcolax) 10 mg RECTAL DAILY PRN PRN Reason: Constipation Chlordiazepoxide (Librium) 25 mg PO Q6H PRN PRN PRN Reason: Moderate-Severe Anxiety Last Admin: 02/11/19 08:56 Dose: 25 mg Documented by: Dicyclomine HCl (Bentyl) 20 mg PO Q6H PRN PRN PRN Reason: Abdomnial Discomfort Last Admin: 02/09/19 21:37 Dose: 20 mg Documented by: Glucagon () 1 mg IM .X1 PRN PRN Reason: Hypoglycemia Heparin Sodium (Beef Lung) (Heparin 500 Unit/5 Ml (100/Ml)) 500 unit IV UD PRN PRN Reason: HEPARIN FLUSH Hydroxyzine HCl (Vistaril Vial) 50 mg IM Q6H PRN PRN PRN Reason: Breakthrough Anxiety Hydroxyzine Pamoate (Vistaril Pamoate Capsule) 50 mg PO Q6H PRN PRN PRN Reason: Mild Anxiety Dextrose (Dextrose 10%-Water) 250 mls @ 999 mls/hr IV .Q16M PRN; Protocol PRN Reason: HYPOGLYCEMIA Ibuprofen (Motrin) 400 mg PO Q8H PRN PRN PRN Reason: Pain Score 1-5/10 Last Admin: 02/09/19 21:37 Dose: 400 mg Documented by: Labetalol HCl (Trandate) 5 mg IV X1 PRN PRN Reason: SBP > 160 prior to sheath pull Loperamide HCl (Imodium) 2 - 4 mg PO UD PRN PRN Reason: LOOSE STOOLS Melatonin (Melatonin) 3 mg PO QHS PRN PRN PRN Reason: INSOMNIA Methocarbamol (Methocarbamol) 750 mg PO Q6H PRN PRN PRN Reason: Muscle Aches Metoprolol Tartrate (Lopressor (Beta Jay)) 12.5 mg PO BID [facility] Last Admin: 02/11/19 08:49 Dose: 12.5 mg Documented by: Nicotine (Nicoderm Cq (Pbkc)) 21 mg TRANSDERM. DAILY [facility] Last Admin: 02/11/19 08:49 Dose: 21 mg Documented by: Nitroglycerin (Nitrostat) 0.4 mg SUBLINGUAL Q5M PRN PRN Reason: CARDIAC/CHEST PAIN Ondansetron HCl (Zofran) 4 mg IV Q8H PRN PRN PRN Reason: NAUSEA/VOMITING Last Admin: 02/07/19 23:34 Dose: 4 mg Documented by: Ondansetron HCl (Zofran Odt) 4 mg PO Q6H PRN PRN PRN Reason: NAUSEA Pramipexole Dihydrochloride (Mirapex) 0.25 mg PO Q12H PRN PRN PRN Reason: Restless Legs Prochlorperazine Edisylate (Compazine Iv) 5 mg IV Q4H PRN PRN PRN Reason: Breakthrough Nausea/Vomiting Senna/Docusate Sodium (Senokot-S, Zeina-Colace) 2 tablet PO BID PRN PRN PRN Reason: Constipation Sodium Chloride () 10 - 40 ml IV UD PRN PRN Reason: SALINE FLUSH Trazodone HCl (Desyrel) 50 mg PO QHS [facility] Last Admin: 02/10/19 21:56 Dose: 50 mg Documented by: Medical Necessity - Tobacco Use Smoking Status: Current every day smoker Tobacco Use: Cigarettes Assessment/Plan All Active Problems Elevated troponin (Acute) Chest pain (Acute) 1. NSTEMI-cardiology consulted. Patient underwent cardiac catheterization which demonstrated normal coronary arteries. Plavix discontinued. Continue Lopressor 12.5 mg twice daily. Continue aspirin. 2. Polysubstance use-IV heroin, fentanyl and methamphetamine. Tox screen positive for amphetamines and benzodiazepines. Patient had recent Narcan administration x2 following overdose. Family seeking inpatient treatment. Social work following. Buprenorphine taper completed. PRN regimen for somatic complaints. 3. Hepatitis A/Hepatitis C-Will need outpatient follow-up when sobriety is obtained. 4. Tobacco dependence-encouraged cessation. Nicotine replacement patch. DVT prophylaxis-low risk, early ambulation. Discharge planning: Plan for discharge to inpatient treatment facility Tuesday. This patient was seen by ANGEL Barry under the supervision of Dr. Paintsil. <Paintsil,Hyde - Last Filed: 02/11/19 11:59> - Physical Exam Vitals/I&O's: Vital Signs Temp Pulse Resp BP Pulse Ox 97.4 F L 71 16 136/75 H 98 02/11/19 08:30 02/11/19 08:49 02/11/19 08:30 02/11/19 08:30 02/11/19 08:30 Oxygen Delivery Method Room Air Weight: 79.2 kg Body Mass Index (BMI) 25.0 Intake and Output for Last 24 Hours 02/09/19 02/10/19 02/11/19 23:59 23:59 23:59 Intake Total 3631.66 / 3631.66 3560.00 / 3680.00 2029 Output Total 750 / 750 Balance 2881.66 / 2881.66 3560.00 / 3680.00 2029 Laboratory Results 02/08/19 14:29: Hepatitis A IgM Ab Positive H, Hepatitis A Ab Total Positive H, Hep Bs Antigen Negative, Hep B Core Total Ab Negative, Hep B Core IgM Ab Negative, Hepatitis C Ab Confirm >11.0 H Current Medications Acetaminophen (Tylenol) 650 mg PO Q6H PRN PRN PRN Reason: Pain Score 1-3/Temp > 100.7 F Al Hydroxide/Mg Hydroxide (Mylanta Ii) 30 ml PO Q6H PRN PRN PRN Reason: dyspesia Albuterol Sulfate (Ventolin Aerosols) 2.5 mg INHALATION Q2H PRN PRN PRN Reason: SOB/Wheezing Last Admin: 02/10/19 16:08 Dose: 2.5 mg Documented by: Aspirin (Ecotrin) 81 mg PO DAILY@0800 [facility] Last Admin: 02/11/19 08:49 Dose: 81 mg Documented by: Bisacodyl (Dulcolax) 10 mg RECTAL DAILY PRN PRN Reason: Constipation Chlordiazepoxide (Librium) 25 mg PO Q6H PRN PRN PRN Reason: Moderate-Severe Anxiety Last Admin: 02/11/19 08:56 Dose: 25 mg Documented by: Dicyclomine HCl (Bentyl) 20 mg PO Q6H PRN PRN PRN Reason: Abdomnial Discomfort Last Admin: 02/09/19 21:37 Dose: 20 mg Documented by: Glucagon () 1 mg IM .X1 PRN PRN Reason: Hypoglycemia Heparin Sodium (Beef Lung) (Heparin 500 Unit/5 Ml (100/Ml)) 500 unit IV UD PRN PRN Reason: HEPARIN FLUSH Hydroxyzine HCl (Vistaril Vial) 50 mg IM Q6H PRN PRN PRN Reason: Breakthrough Anxiety Hydroxyzine Pamoate (Vistaril Pamoate Capsule) 50 mg PO Q6H PRN PRN PRN Reason: Mild Anxiety Dextrose (Dextrose 10%-Water) 250 mls @ 999 mls/hr IV .Q16M PRN; Protocol PRN Reason: HYPOGLYCEMIA Ibuprofen (Motrin) 400 mg PO Q8H PRN PRN PRN Reason: Pain Score 1-5/10 Last Admin: 02/09/19 21:37 Dose: 400 mg Documented by: Labetalol HCl (Trandate) 5 mg IV X1 PRN PRN Reason: SBP > 160 prior to sheath pull Loperamide HCl (Imodium) 2 - 4 mg PO UD PRN PRN Reason: LOOSE STOOLS Melatonin (Melatonin) 3 mg PO QHS PRN PRN PRN Reason: INSOMNIA Methocarbamol (Methocarbamol) 750 mg PO Q6H PRN PRN PRN Reason: Muscle Aches Metoprolol Tartrate (Lopressor (Beta Jay)) 12.5 mg PO BID [facility] Last Admin: 02/11/19 08:49 Dose: 12.5 mg Documented by: Nicotine (Nicoderm Cq (Pbkc)) 21 mg TRANSDERM. DAILY [facility] Last Admin: 02/11/19 08:49 Dose: 21 mg Documented by: Nitroglycerin (Nitrostat) 0.4 mg SUBLINGUAL Q5M PRN PRN Reason: CARDIAC/CHEST PAIN Ondansetron HCl (Zofran) 4 mg IV Q8H PRN PRN PRN Reason: NAUSEA/VOMITING Last Admin: 02/07/19 23:34 Dose: 4 mg Documented by: Ondansetron HCl (Zofran Odt) 4 mg PO Q6H PRN PRN PRN Reason: NAUSEA Pramipexole Dihydrochloride (Mirapex) 0.25 mg PO Q12H PRN PRN PRN Reason: Restless Legs Prochlorperazine Edisylate (Compazine Iv) 5 mg IV Q4H PRN PRN PRN Reason: Breakthrough Nausea/Vomiting Senna/Docusate Sodium (Senokot-S, Zeina-Colace) 2 tablet PO BID PRN PRN PRN Reason: Constipation Sodium Chloride () 10 - 40 ml IV UD PRN PRN Reason: SALINE FLUSH Trazodone HCl (Desyrel) 50 mg PO QHS [facility] Last Admin: 02/10/19 21:56 Dose: 50 mg Documented by: Assessment/Plan This patient was seen in conjunction with Aide Wild ARMORED TRUCK DRIVER. I have independently interviewed and examined the patient and reviewed pertinent historical, laboratory, and other data. Please refer to her note for patient's presentation, findings, and recommendations. Patient was seen and examined. He has been lethargic this morning. Given Librium. Mother at bedside. No acute events overnight Discharge to inpatient treatment facility is planned for tomorrow Vitals were reviewed -stable Physical Exam: Gen: Sleeping, not pale, not jaundiced, alert oriented x3 CVS:HS I +II, regular, no murmurs RESP: Diminished at lung bases GI: BS present and normal, nontender, no palpable organs EXT:No edema Labs reviewed: ASSESSMENT: 1. NSTEMI 2. Polysubstance use 3. Hepatitis A and C, recently diagnosed 4. Nicotine dependence Meds reviewed Plan: We will continue on withdrawal protocol Will discharge to inpatient treatment facility tomorrow morning Code Visit Inpatient E&M: 83711 Subs Hosp L2
[2019-02-11] MEDS: Ondansetron 4 MG/2 ML Vial IV (16:32)
[2019-02-11] MEDS: hydrOXYzine 50 MG/ML Vial IM (16:32)
[2019-02-11] MEDS: 0.9% Saline Lock 10 ML Syringe IV (16:32)
[2019-02-11] MEDS: traZODone 50 MG Tablet PO (22:18)
[2019-02-12] MEDS: Sodium Chloride 0.65% 1 SPRAY SPRAY.BTL 2 SPRAY NASAL (01:42)
[2019-02-12 02:00] VITALS: BP 128/70; PULSE 82; RESP 18; TEMP 36.6; O2SAT 96
[2019-02-12 02:59] VITALS: PULSE 69
[2019-02-12 06:00] VITALS: BP 125/72; PULSE 74; RESP 16; TEMP 36.8; O2SAT 95
[2019-02-12 07:00] VITALS: PULSE 79
[2019-02-12 07:47] LABS: ALB/GLOB Ratio 0.8 RATIO (0.9-2.4); AST(SGOT) 302 U/L (15-37); Alanine Aminotransfer ALT/SGPT 405 U/L (16-61); Albumin, Serum 2.8 g/dL (3.2-5.0); Alkaline Phosphatase 118 U/L (45-117); Anion Gap 3 (5-15); BUN 8 mg/dL (7-18); BUN/Creat Ratio 9.4 RATIO (10-20); Calcium,Total 8.5 mg/dL (8.5-10.1); Chloride 106 mmol/L (98-107); Creatinine, Serum 0.85 mg/dL (0.70-1.30); EST Glomerular Filtration Rate 118 mL/min (>60); Est Glom Filt Rate - Afr Amer 143 mL/min (>60); Estimated Creatinine Clearance 138.37 ml/min; Globulin 3.7 g/dL (2.2-4.2); Glucose 97 mg/dL (74-106); Potassium 4.4 mmol/L (3.5-5.1); Protein, Total 6.5 g/dL (6.4-8.2); Sodium Level 139 mmol/L (136-145)
--- NOTE | 2019-02-12 08:06 | DCINST_ITS ---
- Discharge Diagnoses Current Active Problems: Current Active and Chronic Problems Opiate abuse, episodic (Chronic) Elevated troponin (Acute) Chest pain (Acute) Polysubstance (including opioids) dependence, daily use (Chronic) Nicotine dependence (Chronic) Reason(s) for Visit for Discharge Instructions: Polysubstance use, chest pain You will use the following diet at home:: Regular Your food should be the consistency of: Regular Your liquids should be the consistency of: Regular/Thin Discharge Activity: Return to Normal Activity Additional Instructions: Continue to avoid using illicit drugs. Follow-up with inpatient drug program as planned Allergies/Adverse Reactions: Allergies No Known Allergies Allergy (Verified 02/07/19 12:38) Medications to take at Discharge NK 02/07/19 Primary Care Physician: Roberto Alamo MD [Primary Care Provider] - Please follow up with your Primary Care Physician in: within 1-2 weeks of discharge Test Results: Test results from this visit will be discussed in further detail at your follow- up appointment, if applicable. Proposed Discharge Date: 02/12/19
--- NOTE | 2019-02-12 08:08 | PCM.DC.SUM ---
Discharge Date and Diagnosis Date of Admission: 02/07/19 Date of Discharge: 02/12/19 - Primary Discharge Diagnosis Active and Suspected Problems Acute NSTEMI Elevated liver enzymes Polysubstance use Recent Hep A and C - Secondary Discharge Diagnosis Chronic Problems Opiate abuse, episodic (Chronic) Polysubstance (including opioids) dependence, daily use (Chronic) Nicotine dependence (Chronic) Hospital Course and Treatment Imaging Results: Clinical Impression(s) from Imaging Studies Chest X-Ray 02/07/19 12:48 IMPRESSION: Normal x-ray examination of the chest. Electronically Signed: Harsha Myayaritzamary, at 13:11 EST , Service support , Cardiology Procedures: 2-D Echocardiogram, Cardiac catheterization Summary of Care Provided: The patient is a 23 year old M with history of nicotine use disorder, polysubstance use-fentanyl, methamphetamines, heroin who overdosed nights ago and was admitted to an outside facility in [place]. Work-up for chest pain in the facility showed troponin to be 2.0. Patient was transferred to [facility] in [place], was found using illicit drugs, and he signed out AMA. He returned to his family and was eventually brought to the emergency room for further evaluation and detoxification. Patient complains of persistent chest pain and palpitations. EKG showed normal sinus rhythm, acute ST-T changes. Patient underwent cardiac cath that showed clean coronaries. He was advised to quit using illicit drugs. He was subsequently discharged to an inpatient drug treatment facility. He was discharged on aspirin and metoprolol. He will follow-up with his primary care doctor for treatment for hepatitis A and C Subjective: On the day of discharge, patient was seen and examined. Denied any new complaints. - Physical Exam Vitals/I&O's: Vital Signs Temp Pulse Resp BP Pulse Ox 98.2 F 79 16 125/72 H 95 02/12/19 06:00 02/12/19 07:00 02/12/19 06:00 02/12/19 06:00 02/12/19 06:00 Oxygen Delivery Method Room Air Weight: 79.2 kg Body Mass Index (BMI) 25.0 Intake and Output for Last 24 Hours 02/10/19 02/11/19 02/12/19 23:59 23:59 23:59 Intake Total 3560.00 / 3680.00 3147 / 3147 Balance 3560.00 / 3680.00 3147 / 3147 General: Alert, Oriented x3, Cooperative, No apparent distress HEENT: Atraumatic, PERRLA, EOMI, Normocephalic Oral: Moist Mucosa Neck: Supple Lungs: Clear to auscultation, Normal air movement Cardiovascular: Regular rate, Regular Rhythm, Normal S1, Normal S2 Abdomen: Bowel Sounds Present, Soft, Non Tender, Non-Distended, No Hepato-splenomegaly Extremities: No edema Skin: No rashes, No breakdown Musculoskeletal: No Tenderness to Palpation of Joints or Extremities Lymphatic: No Cervical, Supraclavicular, or Inguinal Adenopathy Neurological: Cranial nerves II-XII grossly intact, Neuro grossly intact Psych/Mental Status: Normal Affect, Appropriate Laboratory Results 02/12/19 07:02: Sodium 139, Potassium 4.4, Chloride 106, Carbon Dioxide 30.0, Anion Gap 3 L, BUN 8, Creatinine 0.85, Estim Creat Clear Calc 138.37, Est GFR (MDRD) Af Amer 143, Est GFR (MDRD) Non-Af 118, BUN/Creatinine Ratio 9.4 L, Glucose 97, Calcium 8.5, Total Bilirubin 0.60, AST 302 H, ALT 405 H, Alkaline Phosphatase 118 H, Total Protein 6.5, Albumin 2.8 L, Globulin 3.7, Albumin/Globulin Ratio 0.8 L Current Medications Acetaminophen (Tylenol) 650 mg PO Q6H PRN PRN PRN Reason: Pain Score 1-3/Temp > 100.7 F Al Hydroxide/Mg Hydroxide (Mylanta Ii) 30 ml PO Q6H PRN PRN PRN Reason: dyspesia Albuterol Sulfate (Ventolin Aerosols) 2.5 mg INHALATION Q2H PRN PRN PRN Reason: SOB/Wheezing Last Admin: 02/10/19 16:08 Dose: 2.5 mg Documented by: Aspirin (Ecotrin) 81 mg PO DAILY@0800 ALBERTO Last Admin: 02/11/19 08:49 Dose: 81 mg Documented by: Bisacodyl (Dulcolax) 10 mg RECTAL DAILY PRN PRN Reason: Constipation Chlordiazepoxide (Librium) 25 mg PO Q6H PRN PRN PRN Reason: Moderate-Severe Anxiety Last Admin: 02/11/19 08:56 Dose: 25 mg Documented by: Dicyclomine HCl (Bentyl) 20 mg PO Q6H PRN PRN PRN Reason: Abdomnial Discomfort Last Admin: 02/09/19 21:37 Dose: 20 mg Documented by: Glucagon () 1 mg IM .X1 PRN PRN Reason: Hypoglycemia Heparin Sodium (Beef Lung) (Heparin 500 Unit/5 Ml (100/Ml)) 500 unit IV UD PRN PRN Reason: HEPARIN FLUSH Hydroxyzine HCl (Vistaril Vial) 50 mg IM Q6H PRN PRN PRN Reason: Breakthrough Anxiety Last Admin: 02/11/19 16:32 Dose: 50 mg Documented by: Hydroxyzine Pamoate (Vistaril Pamoate Capsule) 50 mg PO Q6H PRN PRN PRN Reason: Mild Anxiety Dextrose (Dextrose 10%-Water) 250 mls @ 999 mls/hr IV .Q16M PRN; Protocol PRN Reason: HYPOGLYCEMIA Ibuprofen (Motrin) 400 mg PO Q8H PRN PRN PRN Reason: Pain Score 1-5/10 Last Admin: 02/09/19 21:37 Dose: 400 mg Documented by: Labetalol HCl (Trandate) 5 mg IV X1 PRN PRN Reason: SBP > 160 prior to sheath pull Loperamide HCl (Imodium) 2 - 4 mg PO UD PRN PRN Reason: LOOSE STOOLS Melatonin (Melatonin) 3 mg PO QHS PRN PRN PRN Reason: INSOMNIA Methocarbamol (Methocarbamol) 750 mg PO Q6H PRN PRN PRN Reason: Muscle Aches Metoprolol Tartrate (Lopressor (Beta Jay)) 12.5 mg PO BID [facility] Last Admin: 02/11/19 22:18 Dose: 12.5 mg Documented by: Nicotine (Nicoderm Cq (Pbkc)) 21 mg TRANSDERM. DAILY [facility] Last Admin: 02/11/19 08:49 Dose: 21 mg Documented by: Nitroglycerin (Nitrostat) 0.4 mg SUBLINGUAL Q5M PRN PRN Reason: CARDIAC/CHEST PAIN Ondansetron HCl (Zofran) 4 mg IV Q8H PRN PRN PRN Reason: NAUSEA/VOMITING Last Admin: 02/11/19 16:32 Dose: 4 mg Documented by: Ondansetron HCl (Zofran Odt) 4 mg PO Q6H PRN PRN PRN Reason: NAUSEA Pramipexole Dihydrochloride (Mirapex) 0.25 mg PO Q12H PRN PRN PRN Reason: Restless Legs Prochlorperazine Edisylate (Compazine Iv) 5 mg IV Q4H PRN PRN PRN Reason: Breakthrough Nausea/Vomiting Senna/Docusate Sodium (Senokot-S, Zeina-Colace) 2 tablet PO BID PRN PRN PRN Reason: Constipation Sodium Chloride () 10 - 40 ml IV UD PRN PRN Reason: SALINE FLUSH Last Admin: 02/11/19 16:32 Dose: 10 ml Documented by: Sodium Chloride ([place] Nasal [place]) 2 spray NASAL Q2H PRN PRN Reason: NASAL DRYNESS Last Admin: 02/12/19 01:42 Dose: 2 sprays Documented by: Trazodone HCl (Desyrel) 50 mg PO QHS ALBERTO Last Admin: 02/11/19 22:18 Dose: 50 mg Documented by: Discharge Diet: No Restrictions Discharge Activity: Return to Normal Activity Home Medications: Medications to take at Discharge Acetaminophen [Tylenol Tablet] 650 mg PO Q6H PRN PRN tab 02/12/19 Aspirin E.C. [Ecotrin] 81 mg PO DAILY@0800 #30 tab 02/12/19 Metoprolol Tartrate [Lopressor (beta jay)] 12.5 mg PO BID #60 tab 02/12/19 Following Prescrptions Were Given to Patient: Aspirin E.C. [Ecotrin] 81 mg PO DAILY@0800 #30 tab Prescription Printed Metoprolol Tartrate [Lopressor (beta jay)] 12.5 mg PO BID #60 tab Prescription Printed Primary Care Physician: Roberto Alamo MD [Primary Care Provider] - Please follow up with your Primary Care Physician in: within 1-2 weeks of discharge Disposition: Inpatient drug treatment facility Minutes spent on discharge:: 40 Patient Condition:: Stable Medical Necessity - Tobacco Use Smoking Status: Current every day smoker Tobacco Use: Cigarettes Meaningful Use Info Meaningful Use Diagnoses (Choose all that apply): None applicable Code Visit Inpatient E&M: 39467 Disch Hosp
[2019-02-12 08:34] VITALS: PULSE 79
[2019-02-12] MEDS: Metoprolol Tartrate 25 MG Tablet 12.5 MG PO (08:34)
[2019-02-12] MEDS: Aspirin E.C. 81 MG Tablet PO (08:36)
== END 2019-02-12 08:46 | disposition home or self-care (01) | DRG 281 ==
LOC: ED 15:17 → PCU 17:13
PROVIDERS: Internal Medicine Cardiovascular Disease; Nurse Practitioner Family; Admitting Provider Internal Medicine; Emergency Provider Emergency Medicine; Family Provider Family Medicine; PCP Family Medicine; Referring Provider Internal Medicine; Visit Provider Internal Medicine
DX: I21.4 Non-ST elevation (NSTEMI) myocardial infarction (principal); F11.20 Opioid dependence, uncomplicated; B15.9 Hepatitis A without hepatic coma; F19.20 Other psychoactive substance dependence, uncomplicated; F17.210 Nicotine dependence, cigarettes, uncomplicated; B19.20 Unspecified viral hepatitis C without hepatic coma
CPT/HCPCS: 36415; 71045; 80048; 80053; 80061; 80076; 80307; 80320; 81001; 82248; 83690; 83735; 84443; 84484; 85025; 85610; 86704; 86705; 86706; 86708; 86709; 86803; 87340; 93005; 93306; 93458; 99285; J7030; Q9967; A4216; C1769; C1894; G0480; J2405